=== PATIENT | male | born 1970 | race Asian ===

== ENCOUNTER → 2017-07-04 08:20 | Outpatient (CLI) | payer BC, SELFPAY ==
[2017-07-04 11:00] LABS: ALB/GLOB Ratio 1.1 RATIO (0.9-2.4); AST(SGOT) 23 U/L (15-37); Alanine Aminotransfer ALT/SGPT 35 U/L (16-61); Alkaline Phosphatase 107 U/L (45-117); Anion Gap 6 (5-15); BUN 11 mg/dL (7-18); BUN/Creat Ratio 10.1 RATIO (10-20); Calcium,Total 8.4 mg/dL (8.5-10.1); Chloride 106 mmol/L (98-107); Creatinine, Serum 1.09 mg/dL (0.70-1.30); EST Glomerular Filtration Rate 77 mL/min (>60); Est Glom Filt Rate - Afr Amer 93 mL/min (>60); Globulin 3.5 g/dL (2.2-4.2); Glucose 106 mg/dL (74-106); Potassium 4.1 mmol/L (3.5-5.1); Protein, Total 7.5 g/dL (6.4-8.2); Sodium Level 141 mmol/L (136-145)
== END ==
PROVIDERS: Family Provider Family Medicine; PCP Family Medicine; Visit Provider Family Medicine
DX: I10 Essential (primary) hypertension (principal)
CPT/HCPCS: 36415; 80053

== ENCOUNTER → 2017-09-18 14:55 | Outpatient (CLI) | payer BC, SELFPAY ==
[2017-09-21 11:45] LABS: H. PYLORI STOOL AG Positive (Negative)
== END ==
PROVIDERS: Family Medicine; Family Provider Family Medicine; PCP Family Medicine; Visit Provider Family Medicine
DX: R10.9 Unspecified abdominal pain (principal)

== ENCOUNTER → 2017-11-21 11:48 | Outpatient (CLI) | payer BC, SELFPAY ==
--- NOTE | 2017-11-21 11:51 | RAD_ITS ---
STUDY: X-RAY - RIGHT ANKLE REASON FOR EXAM: Male, 47 years old. injury by the heel while hiking a week ago TECHNIQUE: 3 view(s) of the ankle. COMPARISON: None. FINDINGS: Normal visualized distal tibia and fibula. Normal medial and lateral malleoli. Normal tibiotalar articulation and ankle mortise. Plantar calcaneus spur and posterior calcaneus spur are noted. The visualized subtalar, talonavicular, calcaneocuboid and tarsal articulations are normal. There is soft tissue swelling at the lateral aspect of the ankle suggesting edema. There is a dystrophic calcification in the lower part of the Achilles tendon. RAD/Ankle min 3 Views IMPRESSION: There is soft tissue swelling at the lateral aspect of the ankle suggesting edema. There is a dystrophic calcification in the lower part of the Achilles tendon. Electronically Signed: Jose Ramon Dorsey MD at 14:11 EDT Tel , Service support ,
== END ==
PROVIDERS: Family Provider Family Medicine; PCP Family Medicine; Visit Provider Family Medicine
DX: S99.911A Unspecified injury of right ankle, initial encounter (principal); X58.XXXA Exposure to other specified factors, initial encounter; Y93.9 Activity, unspecified; Y92.9 Unspecified place or not applicable; Y99.9 Unspecified external cause status
CPT/HCPCS: 73610

== ENCOUNTER → 2017-12-07 07:04 | Outpatient (CLI) | payer BC, SELFPAY ==
--- NOTE | 2017-12-07 07:16 | MRI_ITS ---
STUDY: MRI RIGHT ANKLE WITHOUT CONTRAST REASON FOR EXAM: Male, 47 years old. Achilles tendon tear. TECHNIQUE: Standardized fat and water weighted pulse sequences were obtained in all 3 orthogonal planes. # of Images: [id number] COMPARISON: X-ray November 21, 2017. FINDINGS: Normal subcutis adipose space. Normal posterior tibialis tendon. Normal flexor digitorum longus tendon. Normal flexor hallucis longus tendon. Normal peroneus longus and brevis tendons. Normal tibialis anterior tendon. Normal extensor hallucis longus tendon. Normal extensor digitorum longus tendons. There is tendinosis with thickening of the Achilles tendon. There is high grade tear of the distal Achilles tendon and teno-osseous insertion, series 10 image 01/10 and 02/09. There is avulsed fragment of enthesophyte of the posterior calcaneus, series 9 image 12/10 . There is retrocalcaneal bursitis. Normal plantar fascia. Normal plantar calcaneal tubercles. Normal intrinsic muscles of the rearfoot. Normal distal tibiofibular syndesmotic ligamentous complex. Normal lateral ligamentous complex. Normal subtalar ligaments and sinus tarsi. Normal deltoid ligamentous complexes. Normal plantar calcaneonavicular (spring) ligament. Normal tibiotalar articulation. Normal talar dome. Normal subtalar articulations. Normal talonavicular articulation. Normal calcaneocuboid articulation. Normal navicular-cuneiform articulations. MRI/Lower Ext Joint Only (Routine) IMPRESSION: Tendinosis with high-grade distal Achilles tendon tear and avulsed fragment from an enthesophyte at the posterior calcaneus. Electronically Signed: Francisco Duffy MD at 12:20 EDT , Service support ,
== END ==
PROVIDERS: Family Provider Family Medicine; PCP Family Medicine; Referring Provider Podiatrist; Visit Provider Podiatrist
DX: S86.011A Strain of right Achilles tendon, initial encounter (principal); X58.XXXA Exposure to other specified factors, initial encounter; Y93.9 Activity, unspecified; Y92.9 Unspecified place or not applicable; Y99.9 Unspecified external cause status
CPT/HCPCS: 73721

== ENCOUNTER → 2018-01-07 08:35 | Outpatient (CLI) | payer BC, SELFPAY ==
[2018-01-07 10:54] LABS: ALB/GLOB Ratio 1.2 RATIO (0.9-2.4); AST(SGOT) 17 U/L (15-37); Alanine Aminotransfer ALT/SGPT 29 U/L (16-61); Alkaline Phosphatase 128 U/L (45-117); Anion Gap 8 (5-15); BUN 13 mg/dL (7-18); BUN/Creat Ratio 12.1 RATIO (10-20); Calcium,Total 8.2 mg/dL (8.5-10.1); Chloride 108 mmol/L (98-107); Cholesterol 175 mg/dL (200); Creatinine, Serum 1.07 mg/dL (0.70-1.30); EST Glomerular Filtration Rate 78 mL/min (>60); Est Glom Filt Rate - Afr Amer 95 mL/min (>60); Globulin 3.2 g/dL (2.2-4.2); Glucose 117 mg/dL (74-106); High Density Lipoprotein 32 mg/dL; Potassium 4.1 mmol/L (3.5-5.1); Protein, Total 7.2 g/dL (6.4-8.2); Sodium Level 143 mmol/L (136-145); Triglycerides 157 mg/dL; Very Low Density Lipoprotein 31 mg/dL (5-40)
== END ==
PROVIDERS: Family Provider Family Medicine; PCP Family Medicine; Visit Provider Family Medicine
DX: I10 Essential (primary) hypertension (principal)
CPT/HCPCS: 36415; 80053; 80061

== ENCOUNTER 2018-02-01 14:30 | Outpatient (RCR) | payer BC, SELFPAY ==
--- NOTE | 2018-01-18 08:45 | HP.PTEVAL ---
Patient's Visit Information KENNEDY KUNZ is a 47 year old M referred to Physical Therapy by Cornell Carroll with a diagnosis of R achilles tendon tear.. Date of Evaluation: 01/18/18 Physical Therapist: Kamari Toribio DPT, [place] - Visit Plan Frequency: 2-3x /Week Duration: 4-6 Weeks Plan: Educated on activitiy modfiication to tolerance and gait. 2-3x/week for 2-4 to start for. 1. rollout gastroc soleus. Strech gastroc soleus, strengthen gastroc soleus proprioception R ankle, gait training to hiking and progress HEP. ice as needed. - Subjective Findings: Tore achilles tendon backpacking end of 11/15/17 stepping over a root wearing heavy back pack. No previous problems. Doctor sent to foot doctor who did MRI adn tore partially achilles in two places. was in a boot for 6 weeks. F/U last week and got rid of boot last week and sent for PT. Soreness is present with vigorous walking or on a hill posteriorly laterallya t ankle. Putting force through it can make it feel tight. Painfree at rest. Sleep is good. No other treatment other than boot. No current exercises for it. 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 Basic ADLs. Hobbies include backpacking and wants to get back to that. Hiking and has to be careful. Slower than normal and limps. Uncomfortable to step down steps. - Pain R achilles. Pain Intensity (Out of 10): 0 Pain Intensity Range: 0, 2 - Objective B achilles tight to 0 DF, soleus tighter to -2 R and -1 L. No tenderness to [alpatiopn today. SLS R 4 sec adn L 20 sec. Walks I but avoids pushoff with R, weakness with toe walking on R.Steps are reciprocal and I but ecc lowering R with descension is poor. Transfers I. Other ankle aROM WFL. Strength ankle 3+ R gastroc soleus, 4+ other R ankle, 4+ knee B. 5/5 L ankle. - Goals Goal 1:: Full AROM with 4 degrees DF R ankle and 4+/5 strength PF Goal Time Frame: 4-6 Weeks Goal 2:: Walk without deficitis and steps descending normal Goal Time Frame: 4-6 Weeks Goal 3:: Pt feel 90% back to normal and Be I in appropriate HEP. Goal Time Frame: 4-6 Weeks - Rehabilitation Potential Physical Therapy Diagnosis: R achilles tendon tear. Rehabilitation Potential: Fair - Anticipated Interventions Patient/Client Instruction: Educate patient on: Condition, Plan of Care For the Purpose of:: To increase ROM, To improve muscle performance and motor function, To improve performance and independence with ADL's, To improve gait and locomotor functions Therapeutic Exercise to Include: Strength training, Flexibilty training, Gait and locomotor training, Passive ROM, Active ROM For the Purpose of:: To decrease pain, To increase ROM, To improve muscle performance and motor function Manual Therapy Techniques to Include: Soft tissue mobilization For the Purpose of:: To increase ROM Cryotherapy (ice pack, ice massage): Yes For the Purpose of:: To decrease pain Thank you for the opportunity to evaluate your patient. For Medicare and Medicare HMO plans, please review the plan of care and approve it. It will need to be FAXED BACK to us at [phone] for Medicare purposes. For Medicare only, by signing this I certify the plan of care. Please let me know if there are questions or concerns regarding this plan of care. Physician Signature: Date:
--- NOTE | 2018-02-01 15:20 | HP.PTDCSUM ---
HP - PT D/C Summary It has been my pleasure to treat KENNEDY KUNZ under orders from Cornell Carroll, for the diagnosis of R achilles tendon tear. for a total of 6 visit(s). Discharge Date: 02/01/18 Please see the following information for a summary of their discharge status. - Subjective Subjective: Good. Better each day. Not painful. 2/10 with walking alot. Comfortable at rest. Tolerating exercises well. Walked half mile last weekend without difficulty but could not backpack due to snow. Doing stretches at home and strength. Best doctor on 02/13 or after. - Pain R achilles. Pain Intensity (Out of 10): 2 - Overall Improvement % Improvement: 85 - Objective Objective/Function: 5 degrees AROM knee bent and 4 knee straight DF R. 5/5 strength PF, slight weaknesss noted ecc lowering R descending steps but otherwise pretty normal gait and steps. - Goals Goal 1:: Full AROM with 4 degrees DF R ankle and 4+/5 strength PF Goal Progress: Goal Met Goal 2:: Walk without deficitis and steps descending normal Goal Progress: Progressing Goal 3:: Pt feel 90% back to normal and Be I in appropriate HEP. Goal Progress: Progressing - Plan Plan: D/C Pt wants to continue via HEP rather than continued PT. - D/C Information Discharge Comments: Doing well, slightly weak but improving and will continue to work on it at home. Call doctor if concerns. If there are questions or concerns regarding this patient's physical therapy, please feel free to call me at [phone]. Thank you for the referral of this patient. Sincerely, Kamari Toribio, DPT, OCS, CSCS
--- OUTSIDE RECORDS SUMMARY | 2018-03-15 01:32 | XMS RPT_ITS ---
:1970 Author Organization OHIP Support Name Relationship Address Phone [employer] Unavailable [address] + [address] [place] [address] ANTONY KUNZ Unavailable [address] + [place] [address] [employer] Unavailable [address] + [address] [place] [address] ANTONY KUNZ Unavailable [address] + [place] [address] [employer] Unavailable [address] + [address] [place] [phone] ZE, CHI Unavailable [address] + [place] [address] [employer] Unavailable [address] + [address] [place] [phone] ZE CHI Unavailable [address] + [place] [address] [employer] Unavailable [address] + [address] [place] [phone] ZE, CHI Unavailable [address] + [place] [address] [employer] Unavailable [address] + [address] [place] [address] ZE [facility]I Unavailable [address] + [place] [address] Care Team Providers Name Role Phone Frankie Cope Attending Unavailable Frankie Cope Primary Care Unavailable Frankie Cope Attending Unavailable Frankie Cope Primary Care Unavailable Frankie Cope Attending Unavailable Frankie Cope Primary Care Unavailable Cornell Carroll Attending Unavailable Cornell Carroll Referring Unavailable Cope, Frankie Primary Care Unavailable Cope, Frankie Attending Unavailable Cope, Frankie Primary Care Unavailable Jessing, Cornell Attending Unavailable Jessing, Cornell Referring Unavailable Cope, Frankie Primary Care Unavailable PROBLEMS PROBLEMS DATE TYPE CONDITION / CODE ATTENDING STATUS SOURCE 01/07/2018 Unknown I10 - Essential Frankie Cope Active Jeanne (primary) Community hypertension / Hospital I10(ICD-10) Repository 11/21/2017 Unknown S99.919A - Frankie Cope Active Jeanne Unspecified injury Community of unspecified Hospital ankle, initial Repository encounter / S99.919A(ICD-10) PROCEDURES PROCEDURES No Procedure Records FoundRESULTS RESULTS PT D/C SUMMARY (1) Observed: 02/04/2018 Status: F Source: [place] 6:45 AM [facility] REPOSITORY [facility] [address] [place] [address] Fax REHABILITATION SERVICES DISCHARGE SUMMARY MR#: [id number] Acct: [id number] Name: KENNEDY KUNZ Rep #: [id number] : 1970 47 From: Kamari Toribio DPT, OCS, CSCS Referring Dr.: Cornell Carroll DPM Status: REG RCR Insurance: [employer]M SELF PAY INSURANCE HP - PT D/C Summary It has been my pleasure to treat KENNEDY KUNZ under orders from Cornell Carroll, for the diagnosis of R achilles tendon tear. for a total of 6 visit(s). Discharge Date: 02/01/18 Please see the following information for a summary of their discharge status. - Subjective Subjective: Good. Better each day. Not painful. 03/31 with walking alot. Comfortable at rest. Tolerating exercises well. Walked half mile last weekend without difficulty but could not backpack due to snow. Doing stretches at home and strength. Best doctor on 02/13 or after. - Pain R achilles. Pain Intensity (Out of 10): 2 - Overall Improvement % Improvement: 85 - Objective Objective/Function: 5 degrees AROM knee bent and 4 knee straight DF R. 5/5 strength PF, slight weaknesss noted ecc lowering R descending steps but otherwise pretty normal gait and steps. - Goals Goal 1:: Full AROM with 4 degrees DF R ankle and 4+/5 strength PF Goal Progress: Goal Met Goal 2:: Walk without deficitis and steps descending normal Goal Progress: Progressing Goal 3:: Pt feel 90% back to normal and Be I in appropriate HEP. Goal Progress: Progressing - Plan Plan: D/C Pt wants to continue via HEP rather than continued PT. - D/C Information Discharge Comments: Doing well, slightly weak but improving and will continue to work on it at home. Call doctor if concerns. If there are questions or concerns regarding this patient's physical therapy, please feel free to call me at [phone]. Thank you for the referral of this patient. Sincerely, Kamari Toribio DPT, FRED, CSCS <Electronically signed by FRED Ramirez DPT, CSCS> 02/04/18 0645 CC: Cornell Carroll DPM; Frankie Cope MD EBG Signed INITAL EVALUATION (1) Observed: 01/21/2018 Status: F Source: [place] - PT 6:49 AM [facility] REPOSITORY [facility] [address] [place], [place] [address] Fax REHABILITATION SERVICES INITIAL EVALUATION MR#: [id number] Acct: [id number] Name: KENNEDY KUNZ Rep #: [id number] : 1970 47 From: Kamari Toribio DPT, FRED, CSCS Referring Dr.: Cornell Carroll DPM Status: REG RCR Insurance: ANTH SELF PAY INSURANCE Patient's Visit Information KENNEDY KUNZ is a 47 year old M referred to Physical Therapy by Cornell Carroll with a diagnosis of R achilles tendon tear.. Date of Evaluation: 01/18/18 Physical Therapist: Kamari Toribio DPT, OC - Visit Plan Frequency: 2-3x /Week Duration: 4-6 Weeks Plan: Educated on activitiy modfiication to tolerance and gait. 2-3x/week for 2-4 to start for. 1. rollout gastroc soleus. Strech gastroc soleus, strengthen gastroc soleus proprioception R ankle, gait training to hiking and progress HEP. ice as needed. - Subjective Findings: Tore achilles tendon backpacking end of 11/15/17 stepping over a root wearing heavy back pack. No previous problems. Doctor sent to foot doctor who did MRI adn tore partially achilles in two places. was in a boot for 6 weeks. F/U last week and got rid of boot last week and sent for PT. Soreness is present with vigorous walking or on a hill posteriorly laterallya t ankle. Putting force through it can make it feel tight. Painfree at rest. Sleep is good. No other treatment other than boot. No current exercises for it. 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 Basic ADLs. Hobbies include backpacking and wants to get back to that. Hiking and has to be careful. Slower than normal and limps. Uncomfortable to step down steps. - Pain R achilles. Pain Intensity (Out of 10): 0 Pain Intensity Range: 0, 2 - Objective B achilles tight to 0 DF, soleus tighter to -2 R and -1 L. No tenderness to [alpatiopn today. SLS R 4 sec adn L 20 sec. Walks I but avoids pushoff with R, weakness with toe walking on R.Steps are reciprocal and I but ecc lowering R with descension is poor. Transfers I. Other ankle aROM WFL. Strength ankle 3+ R gastroc soleus, 4+ other R ankle, 4+ knee B. 5/5 L ankle. - Goals Goal 1:: Full AROM with 4 degrees DF R ankle and 4+/5 strength PF Goal Time Frame: 4-6 Weeks Goal 2:: Walk without deficitis and steps descending normal Goal Time Frame: 4-6 Weeks Goal 3:: Pt feel 90% back to normal and Be I in appropriate HEP. Goal Time Frame: 4-6 Weeks - Rehabilitation Potential Physical Therapy Diagnosis: R achilles tendon tear. Rehabilitation Potential: Fair - Anticipated Interventions Patient/Client Instruction: Educate patient on: Condition, Plan of Care For the Purpose of:: To increase ROM, To improve muscle performance and motor function, To improve performance and independence with ADL's, To improve gait and locomotor functions Therapeutic Exercise to Include: Strength training, Flexibilty training, Gait and locomotor training, Passive ROM, Active ROM For the Purpose of:: To decrease pain, To increase ROM, To improve muscle performance and motor function Manual Therapy Techniques to Include: Soft tissue mobilization For the Purpose of:: To increase ROM Cryotherapy (ice pack, ice massage): Yes For the Purpose of:: To decrease pain Thank you for the opportunity to evaluate your patient. For Medicare and Medicare HMO plans, please review the plan of care and approve it. It will need to be FAXED BACK to us at [phone] for Medicare purposes. For Medicare only, by signing this I certify the plan of care. Please let me know if there are questions or concerns regarding this plan of care. Physician Signature: Date: <Electronically signed by Kamari Toribio DPT, OCS, CSCS> 01/21/18 0649 CC: Cornell Carroll DPM; Frankie Cope MD EBG Signed COMPREHENSIVE METABOLIC Collected: 01/07/2018 Status: F Source: [place] [facility] 8:35 AM [facility] REPOSITORY TYPE CODE TESTS RESULT OUT OF RANGE REFERENCE UNITS LAB L501.0100 74-106 mg/dL High GLU 117 Result Comment: Fasting Glucose result from 100 to 125 mg/dL suggests IMPAIRED HOMEOSTASIS per A.D.A. criteria. Please note revised GLUCOSE reference range effective 2017. LAB L501.1000 7-18 mg/dL Normal BUN 13 LAB L501.1100 0.70-1.30 mg/dL Normal CREAT,SERUM 1.07 Result Comment: The validity of the calculated GFR AND GFRAA in patients over 70 years has not been determined. Clinical correlation is essential. LAB L501.1110 >60 mL/min Normal EST GFR 78 Result Comment: Non- GFR Calc LAB L501.1115 >60 mL/min Normal EST GFR - AA 95 Result Comment: GFR Calc LAB L501.1300 10-20 RATIO Normal BUN/CRE 12.1 LAB L501.1500 6.4-8.2 g/dL T Normal PROT 7.2 LAB L501.1800 3.2-5.0 g/dL Normal ALB 4.0 LAB L501.1950 2.2-4.2 g/dL Normal GLOB 3.2 LAB L501.2000 0.9-2.4 RATIO Normal A/G 1.2 LAB L501.2200 8.5-10.1 mg/dL Low CA 8.2 LAB L501.4100 15-37 U/L Normal AST 17 LAB L501.4305 45-117 U/L High ALK P 128 LAB L501.4405 16-61 U/L Normal ALT 29 LAB L501.4600 0.20-1.00 mg/dL T Normal BILI 0.90 LAB L501.5300 136-145 mmol/L NA Normal 143 LAB L501.5600 3.5-5.1 mmol/L K Normal 4.1 LAB L501.5900 98-107 mmol/L High CL 108 LAB L501.6100 21.0-32.0 mmol/L Normal CO2 27.0 LAB L501.6200 5-15 Normal GAP 8 Performed By: #### L500.4050, L500.4100 #### [facility] [address] [place], [address] LIPID PROFILE Collected: 01/07/2018 Status: F Source: [place] 8:35 AM [facility] REPOSITORY TYPE CODE TESTS RESULT OUT OF RANGE REFERENCE UNITS LAB L501.4900 200 mg/dL Normal CHOL 175 Result Comment: <200 mg/dL Desirable 200-240 mg/dL Borderline >240 mg/dL High Risk LAB L501.5000 mg/dL Normal TRIG 157 Result Comment: The drugs N-Acetylcysteine and Metamizole may falsely depress this assay. Serum Triglycerides Reference Interval Normal <150 mg/dL Borderline high 150 - 199 mg/dL High 200 - 499 mg/dL Very High > or = 500 mg/dL LAB L501.6400 mg/dL Low HDL 32 Result Comment: The drugs N-Acetylcysteine and Metamizole may falsely depress this assay. Reference Range HDL <40 mg/dL Low HDL Cholesterol HDL >or= 60 mg/dL High HDL Cholesterol LAB L501.6500 0-130 mg/dL Normal LDL 112 LAB L501.6600 5-40 mg/dL Normal VLDL 31 Performed By: #### L500.4050, L500.4100 #### [facility] [address] [place], [address] LOWER EXT JOINT ONLY Observed: 12/07/2017 Status: F Source: [place] (ROUTINE) 7:16 AM [facility] REPOSITORY [facility] Imaging Services [address] [place] [address] Lower Ext Joint Only (Routine) MR#: [id number] Acct: [id number] Name: KENNEDY KUNZ Rep #: [id number] : 1970 M 47 From: Francisco Duffy MD PCP: Frankie Cope MD Status: REG CLI Study: Lower Ext Joint Only (Routine) Date of Exam: 12/07/17 Exam# [id number] Ordering Dr: Cornell Carroll DPM ADDENDUM by Francisco Duffy MD on 12/10/17 at 1424 ADDENDUM IMPRESSION: Tendinosis with high-grade distal Achilles tendon tear and avulsed fragment from an enthesophyte at the posterior calcaneus. There are residual intact inserting fibers at the anterior aspect of the Achilles tendon. Results discussed with Dr. Carroll Electronically Signed: Francisco Duffy MD at 14:24 EDT , Service support , 12/10/17 1424 Date cc: Cornell Carroll DPM; Frankie Cope MD * Signed ADDENDUM by Francisco Duffy MD on 12/10/17 at 1424 MRI/Lower Ext Joint Only (Routine) 12/10/17 1431 Date cc: Cornell Carroll DPM; Frankie Cope MD * Signed STUDY: MRI RIGHT ANKLE WITHOUT CONTRAST REASON FOR EXAM: Male, 47 years old. Achilles tendon tear. TECHNIQUE: Standardized fat and water weighted pulse sequences were obtained in all 3 orthogonal planes. # of Images: [id number] COMPARISON: X-ray November 21, 2017. FINDINGS: Normal subcutis adipose space. Normal posterior tibialis tendon. Normal flexor digitorum longus tendon. Normal flexor hallucis longus tendon. Normal peroneus longus and brevis tendons. Normal tibialis anterior tendon. Normal extensor hallucis longus tendon. Normal extensor digitorum longus tendons. There is tendinosis with thickening of the Achilles tendon. There is high grade tear of the distal Achilles tendon and teno-osseous insertion, series 10 image 01/10 and 02/09. There is avulsed fragment of enthesophyte of the posterior calcaneus, series 9 image 12/10 . There is retrocalcaneal bursitis. Normal plantar fascia. Normal plantar calcaneal tubercles. Normal intrinsic muscles of the rearfoot. Normal distal tibiofibular syndesmotic ligamentous complex. Normal lateral ligamentous complex. Normal subtalar ligaments and sinus tarsi. Normal deltoid ligamentous complexes. Normal plantar calcaneonavicular (spring) ligament. Normal tibiotalar articulation. Normal talar dome. Normal subtalar articulations. Normal talonavicular articulation. Normal calcaneocuboid articulation. Normal navicular-cuneiform articulations. MRI/Lower Ext Joint Only (Routine) IMPRESSION: Tendinosis with high-grade distal Achilles tendon tear and avulsed fragment from an enthesophyte at the posterior calcaneus. Electronically Signed: Francisco Duffy MD at 12:20 EDT , Service support , CC: Cornell Carroll DPM; Frankie Cope MD Facilities Manager: Signed ANKLE MIN 3 VIEWS Observed: 11/21/2017 Status: F Source: [place] 11:52 AM [facility] REPOSITORY [facility] Imaging Services [address] [place] [address] Ankle min 3 Views MR#: [id number] Acct: [id number] Name: KENNEDY KUNZ Rep #: [id number] : 1970 M 47 From: Jose Ramon Dorsey MD PCP: Frankie Cope MD Status: REG CLI Study: Ankle min 3 Views Date of Exam: 11/21/17 Exam# [id number] Ordering Dr: Frankie Cope MD STUDY: X-RAY - RIGHT ANKLE REASON FOR EXAM: Male, 47 years old. injury by the heel while hiking a week ago TECHNIQUE: 3 view(s) of the ankle. COMPARISON: None. FINDINGS: Normal visualized distal tibia and fibula. Normal medial and lateral malleoli. Normal tibiotalar articulation and ankle mortise. Plantar calcaneus spur and posterior calcaneus spur are noted. The visualized subtalar, talonavicular, calcaneocuboid and tarsal articulations are normal. There is soft tissue swelling at the lateral aspect of the ankle suggesting edema. There is a dystrophic calcification in the lower part of the Achilles tendon. RAD/Ankle min 3 Views IMPRESSION: There is soft tissue swelling at the lateral aspect of the ankle suggesting edema. There is a dystrophic calcification in the lower part of the Achilles tendon. Electronically Signed: Jose Ramon Dorsey MD at 14:11 EDT Tel , Service support , CC: Frankie Cope MD Facilities Manager: Signed H. PYLORI STOOL AG Collected: 09/18/2017 Status: F Source: [place] 2:57 PM [facility] REPOSITORY TYPE CODE TESTS RESULT OUT OF REFERENCE UNITS RANGE LAB L3100.1950 Negative High H PYLORI Positive STL AG Result Comment: Performed at: - [facility] [address] [id number] [address] Worker: Raúl Arce MD, Phone: [phone] Performed By: #### L3100.1950 #### [facility] (refer to report for specific site) refer to report for address and phone number COMPREHENSIVE METABOLIC Collected: 07/04/2017 Status: F Source: [place] 8:25 AM [facility] REPOSITORY TYPE CODE TESTS RESULT OUT OF RANGE REFERENCE UNITS LAB L501.0100 74-106 mg/dL Normal GLU 106 Result Comment: Fasting Glucose result from 100 to 125 mg/dL suggests IMPAIRED HOMEOSTASIS per A.D.A. criteria. Please note revised GLUCOSE reference range effective 2017. LAB L501.1000 7-18 mg/dL Normal BUN 11 LAB L501.1100 0.70-1.30 mg/dL Normal CREAT,SERUM 1.09 Result Comment: The validity of the calculated GFR AND GFRAA in patients over 70 years has not been determined. Clinical correlation is essential. LAB L501.1110 >60 mL/min Normal EST GFR 77 Result Comment: Non- GFR Calc LAB L501.1115 >60 mL/min Normal EST GFR - AA 93 Result Comment: GFR Calc LAB L501.1300 10-20 RATIO Normal BUN/CRE 10.1 LAB L501.1500 6.4-8.2 g/dL T Normal PROT 7.5 LAB L501.1800 3.2-5.0 g/dL Normal ALB 4.0 LAB L501.1950 2.2-4.2 g/dL Normal GLOB 3.5 LAB L501.2000 0.9-2.4 RATIO Normal A/G 1.1 LAB L501.2200 8.5-10.1 mg/dL Low CA 8.4 LAB L501.4100 15-37 U/L Normal AST 23 Result Comment: Slight Hemolysis, Result may be falsely increased. LAB L501.4305 45-117 U/L Normal ALK P 107 LAB L501.4405 16-61 U/L Normal ALT 35 LAB L501.4600 0.20-1.00 mg/dL Normal T BILI 0.70 LAB L501.5300 136-145 mmol/L Normal NA 141 LAB L501.5600 3.5-5.1 mmol/L Normal K 4.1 Result Comment: Slight Hemolysis, Result may be falsely increased. LAB L501.5900 98-107 mmol/L Normal CL 106 LAB L501.6100 21.0-32.0 mmol/L Normal CO2 29.0 LAB L501.6200 5-15 Normal 6 GAP Performed By: #### L500.4050 #### [facility] [address] [place], [address] ALLERGIES ALLERGIES No Allergies Records FoundENCOUNTERS ENCOUNTERS ADMIT/DISCHARGE ACCOUNT ADMITTING ENCOUNTER LOCATION SOURCE NUMBER CLASS 02/01/2018 [id number] [facility] [address] ing:PT Repository 01/07/[id number] ing:MFPLAB Repository 12/07/2017 [id number] [facility] [place] 0 [facility] ing:MRI Repository 11/21/2017 [id number] [facility] ing:MTRAD Repository 09/18/2017 [id number] [facility] Jeanne[address] ing:MFPLAB Repository 07/04/[id number] ing:MFPLAB Repository PAYERS PAYERS ENCOUNTER GUARANTOR PAYER SUBSCRIBER SOURCE 02/01/2018 KENNEDY Alcazar Primary KENNEDY Alcazar Jean[place] [id number] Insurance:ANTHEMPolic NGUYENDOB: [facility] y [place]: [id number] [id number] Repository [address]Gka: [phone]) Date:0537-40-36[phone] ([facility] [address], [place] [address]QF: 02/01/2018 Secondary NOT GIVENUNK [place] Insurance:SELF PAY [facility] Number: Effective Repository Date:2018-01-17 01/07/2018 KENNEDY Alcazar Primary KENNEDY M [place] [id number] Insurance:ANTHEMPolic NGUYENDOB: [facility] y Number: [id number] [place] [id number] Repository [address]Wmz: ([phone]) Date:3993-16-20[phone] () [address], [place] [address]DB: 01/07/2018 Secondary NOT GIVENUNK [place] Insurance:SELF PAY [facility] Number: Effective Repository Date:2018-01-07 12/07/2017 BLANCHARD M Primary BLANCHARD M [place] [id number] Insurance:ANTHEMPolic NGUYENDOB: [facility] y Number: [id number] [place], [place] [id number] Repository [address]Mtk: ([phone]) Date:6327-78-65IF [phone] () [address], [place] [address]KU: 12/07/2017 Secondary NOT GIVENUNK [place] Insurance:SELF PAY [facility] Number: Effective Repository Date:2017-12-05 11/21/2017 BLANCHARD M Primary BLANCHARD M Jeanne [id number] Insurance:ANTHEMPolic NGUYENDOB: [facility] y Number: [id number] [place] [id number] Repository [address]Lmt: (419) Date:4819-19-81GH [phone] () 167[address]WTV[place], [place] [address]UG: 11/21/2017 Secondary NOT GIVENUNK [place] Insurance:SELF PAY [facility] Number: Effective Repository Date:2017-11-21 09/18/2017 [place] Primary [place] Jean[place] [id number] Insurance:ANTHEMPolic NguyenDOB: [facility] y Number: [id number] [place], [place] [id number] Repository [address]Kit: (419) Date:0048-18-27OJ [phone] () [id number], [place] [address]CL: 09/18/2017 Secondary NOT GIVENUNK [place] Insurance:SELF PAY [facility] Number: Effective Repository Date:2017-09-18 07/04/2017 [place] Primary [place] Jeanne [id number] Insurance:ANTHEMPolic NguyenDOB: [facility] Number: [id number] [place] [id number] Repository [address]Iop: [phone]) Date:7075-86-54YW [phone] () 0717[address]CMDULVT, [place] [address]RL: 07/04/2017 Secondary NOT GIVENUNK [place] Insurance:SELF PAY [facility] Number: Effective Repository Date:2017-07-04
== END 2018-02-01 19:00 | disposition home or self-care (01) ==
LOC: PT 14:30
PROVIDERS: Family Provider Family Medicine; PCP Family Medicine; Referring Provider Podiatrist; Visit Provider Podiatrist
DX: S86.011D Strain of right Achilles tendon, subsequent encounter (principal)
CPT/HCPCS: 97110; 97140; 97161; 97530

== ENCOUNTER → 2018-07-12 08:08 | Outpatient (CLI) | payer BC, SELFPAY ==
[2018-07-12 10:40] LABS: ALB/GLOB Ratio 1.3 RATIO (0.9-2.4); AST(SGOT) 12 U/L (15-37); Alanine Aminotransfer ALT/SGPT 25 U/L (16-61); Albumin, Serum 3.9 g/dL (3.2-5.0); Alkaline Phosphatase 123 U/L (45-117); Anion Gap 7 (5-15); BUN 13 mg/dL (7-18); BUN/Creat Ratio 13.4 RATIO (10-20); Calcium,Total 8.3 mg/dL (8.5-10.1); Chloride 108 mmol/L (98-107); Cholesterol 153 mg/dL (200); Creatinine, Serum 0.97 mg/dL (0.70-1.30); EST Glomerular Filtration Rate 88 mL/min (>60); Est Glom Filt Rate - Afr Amer 106 mL/min (>60); Glucose 103 mg/dL (74-106); High Density Lipoprotein 33 mg/dL; Potassium 4.2 mmol/L (3.5-5.1); Protein, Total 6.9 g/dL (6.4-8.2); Sodium Level 141 mmol/L (136-145); Triglycerides 128 mg/dL; Very Low Density Lipoprotein 26 mg/dL (5-40)
== END ==
PROVIDERS: Family Provider Family Medicine; PCP Family Medicine; Referring Provider Family Medicine; Visit Provider Family Medicine
DX: I10 Essential (primary) hypertension (principal)
CPT/HCPCS: 36415; 80053; 80061

== ENCOUNTER → 2018-09-08 14:28 | Outpatient (CLI) | payer BC, SELFPAY ==
[2018-09-08 12:10] VITALS: BMI 25.8
== END ==
LOC: LAB 14:29 → LABSPEC 14:31
PROVIDERS: Family Provider Family Medicine; PCP Family Medicine; Referring Provider Family Medicine; Visit Provider Physician Assistant Medical
DX: J02.9 Acute pharyngitis, unspecified (principal)
CPT/HCPCS: 87081

== ENCOUNTER → 2018-12-09 11:49 | Outpatient (CLI) | payer BC, SELFPAY ==
[2018-09-08 12:10] VITALS: BMI 25.8
--- NOTE | 2018-12-09 12:09 | CT_ITS ---
STUDY: CT BRAIN WITHOUT CONTRAST REASON FOR EXAM: Male, 48 years old. Vertigo and nausea RADIATION DOSAGE (If Supplied By Facility): CTDIvol = ( 44.99 ) mGy, DLP = ( 796.11 ) mGycm TECHNIQUE: Transaxial CT imaging of the brain was performed without administration of intravenous contrast material. Individualized dose optimization techniques were used for this CT. COMPARISON: No relevant priors. FINDINGS: Brain parenchyma is without focal lesions, mass effect, acute intracranial hemorrhage, extra parenchymal fluid collections, hydrocephalus or herniation. The skull is intact. CT/Brain/Head without Contrast IMPRESSION: 1. Normal CT brain. Electronically Signed: Cristina Chapa, at 16:22 EDT Tel , Service support ,
== END ==
PROVIDERS: Family Provider Family Medicine; PCP Family Medicine; Referring Provider Family Medicine; Visit Provider Family Medicine
DX: R42 Dizziness and giddiness (principal)
CPT/HCPCS: 70450

== ENCOUNTER → 2019-12-26 07:18 | Outpatient (CLI) | payer BC, SELFPAY ==
[2018-09-08 12:10] VITALS: BMI 25.8
[2019-12-26 10:18] LABS: Anion Gap 6 (5-15); BUN 14 mg/dL (7-18); BUN/Creat Ratio 14.1 RATIO (10-20); Calcium,Total 8.2 mg/dL (8.5-10.1); Chloride 109 mmol/L (98-107); Cholesterol 189 mg/dL (200); EST Glomerular Filtration Rate 84 mL/min (>60); Est Glom Filt Rate - Afr Amer 102 mL/min (>60); Glucose 127 mg/dL (74-106); High Density Lipoprotein 37 mg/dL; Potassium 3.9 mmol/L (3.5-5.1); Sodium Level 141 mmol/L (136-145); Triglycerides 126 mg/dL; Very Low Density Lipoprotein 25 mg/dL (5-40)
== END ==
PROVIDERS: PCP Family Medicine; Referring Provider Family Medicine; Visit Provider Family Medicine
DX: I10 Essential (primary) hypertension (principal)
CPT/HCPCS: 36415; 80048; 80061

== ENCOUNTER 2020-01-23 09:23 | Day surgery (SDC) | payer BC, SELFPAY ==
[2018-09-08 12:10] VITALS: BMI 25.8
--- NOTE | 2020-01-23 | COLBX_PTH ---
PATIENT: KENNEDY KUNZ LOC: EN U#:[id number] AGE/SX: 49/M ROOM: RE01/23/[address]: Dr. Saqib Tanner MD : 1970 BED: DIS: 01/23/2020 SPEC #: [id number] RECD: 01/23/20 14:17 STATUS: MINI REMaryjane #: [id number] ERIKA: 01/23/20 00:[address]: Saqbi Tanner DEPT: SURGICAL PATHOLOGY RECD BY: Dorian Dow ENTERED: 01/26/20 08:40 SP TYPE: COLON BX OTHR DR: Dr. Frankie Cope MD Tissues: A - Cecum, NOS B - Descending colon Procedures: Surgery Specimen Level IV HEADER OPERATION: Colonoscopy - open access (MAC) PRE-OP DIAGNOSIS: Screening colonoscopy TISSUE SUBMITTED: A - Cecum polyp, B - Descending colon polyp MICROSCOPIC DIAGNOSIS A. Cecal polyp, biopsy: Fragments of tubular adenoma. B. Descending colon polyp, biopsy: Fragments of tubular adenoma. AM:kasandra 01/27/20 MICROSCOPIC DESCRIPTION Slides are reviewed. GROSS DESCRIPTION A - Received in fixative is one container labeled with the patient's name and designated cecal polyp. The specimen consists of multiple irregular fragments of light ordoñez soft tissue that in aggregate measure 1.2 x 0.5 x 0.2 cm. The specimen is totally submitted in one cassette. B - Received in fixative is one container labeled with the patient's name and designated descending colon polyp. The specimen consists of multiple irregular fragments of light ordoñez soft tissue that in aggregate measure 1.5 x 0.6 x 0.1 cm. The specimen is totally submitted in one cassette. / AM:kasandra 01/26/20 TC:5 CPT: 73566 x2
[2020-01-23 09:53] VITALS: BP 118/99; PULSE 96; RESP 18; TEMP 36.5; O2SAT 95; BMI 26.4
[2020-01-23] MEDS: Lactated Ringers 1,000 ML 100 ML IV (10:03)
--- NOTE | 2020-01-23 10:34 | HP.PCM_ITS ---
History of Present Illness Date of Admission: 01/23/20 The patient is a 49 year old M here for screening colonoscopy. The patient has never had a colonoscopy in the past. He denies any abdominal pain or blood in his stool. He has no family history of colon cancer. Past Medical/Surgical History - Planned Operation Planned Operative Procedure/s: COLONOSCOPY Date of Operative Procedure: 01/23/20 Permit Signed: Yes S.O.S: No Is This Patient Having a Total Joint: No - Previous Hospitalizations/Surgeries HX Hospitalizations: No HX of Surgeries: NONE Any Problems With Anesthesia: No You/Your Family Experience Fever (Hyperthermia) With Anes: No Cholinesterase deficiency: No - Cardiovascular Hx Chest Pain within Last 2 months: No Hx of Irregular Heartbeat and/or Afib: No Hx Heart Attack: No Hx Congestive Heart Failure: No Hx Rheumatic Fever: No Hx Hypertension: Yes - ON MED, CONTROLLED Hx Internal Defibrillator: No Hx Pacemaker: No Hx Cardiac Catheterization: No Hx Cardiac Surgery/Stents/Etc.: No Hx Stress Test: No HX Edema: No Hx Pain in Legs when Walking/Leg Cramps: No - Respiratory Chronic Cough: No HX of Shortness of Breath: No Hoarseness: No Hx Chronic Obstructive Pulmonary Disease (COPD): No Hx Asthma: No Hx Emphysema: No Hx Sleep Apnea: No Hx Oxygen Use at Home: No Hx Respiratory Tract Infection/Cold (presently): No Do You Snore Loudly (louder than talking or can be heard): No Do You Often Feel Tired/ Fatigued/ Sleepy Dring Daytime?: No Has Anyone Observed You Stop Breathing During Sleep?: No Result (for STOP score): Negative Hx Smoking: Yes Smoking Status: Current every day smoker - Gastrointestinal Hx Gastroesophageal Reflux: No Hx Gastrointestinal Disorders: No Hx Gastrointestinal Bleed: No Hx Ulcer: No Hx Hiatal Hernia: No Difficulty Chewing/Swallowing: No Recent Onset of Swallowing Problems: No Special diet followed at home: No Hx Unplanned Weight Loss of 20#: No HX Unplanned Weight Gain of 20#: No - Neurological Hx Seizures: No HX Syncope/Blackout Spells/Unconsciousness: No Hx CVA/Stroke: No Hx Transient Ischemic Attacks (TIA): No Hx Multiple Sclerosis: No Hx Parkinson's Disease: No Hx Head/Neck Injury: No Hx Headaches: No Hx Back Injury/Pain: No Recent Onset of Speech Difficulty: No Restless Legs: No Does patient have nerve stimulator: No - Blood Disorder Hx Leukemia: No Bleeding Tendencies: No Hx Deep Vein Thrombosis: No Hx High Cholesterol: No Blood Transmitted Disease: No Hx Hepatitis: No Hx Cirrhosis: No Hx Anemia: No Hx Blood Disorders: No - Genitourinary Hx Renal Disease: No - Musculoskeletal Hx Arthritis: No Hx Rheumatoid Arthritis: No Hx Gout: No Recent Onset of an Orthopedic Problem: No - Endocrine Hx Diabetes: No Thyroid Disease: No Hx Steroid Therapy: No - Psycho/Social Hx Substance Use: No Hx Alcohol Use: No Hx Anxiety: No Hx Depression: No Mental Illness: No Hx Dementia: No - Miscellaneous Hx Cancer: No Recent Exposure to Contagious Disease: No Active MRSA: No Hx of C-Diff: No Any Loose Teeth: No Additional information pertinent to anesthesia:: SMOKES 5-6 CIGARETTES PER DAY FOR 30 YRS Allergies No Known Allergies Allergy (Verified 01/20/20 10:40) - Discharge Is Pt Admitted From a Senior Care, or a Halfway: No Who Could Help: After D/C, Where Do you Plan to Go: Return Home - Physical Exam Vitals/I&O's: Vital Signs Temp Pulse Resp BP Pulse Ox 97.7 F L 96 18 118/99 H 95 01/23/20 09:53 01/23/20 09:53 01/23/20 09:53 01/23/20 09:53 01/23/20 09:53 Oxygen Delivery Method Room Air Weight: 169 lb 1.513 oz Body Mass Index (BMI) 26.4 General: Alert, Oriented x3 Lungs: Normal air movement Cardiovascular: Regular rate, Regular Rhythm Abdomen: Soft, Non Tender, Non-Distended Microbiology Past 72 Hours 01/22/20 08:54 Interface Orders SARS-CoV-2 Antigen (Rapid) - Final Current Medications Lactated Ringer's () 1,000 mls @ 100 mls/hr IV .Q10H DEBBIE Last Admin: 01/23/20 10:03 Dose: 100 mls/hr Documented by: Assessment/Plan 49-year-old male for screening colonoscopy I explained endoscopy in detail to the patient. I explained the risks including but not limited to stroke or heart attack with anesthesia, perforation of the GI tract, bleeding, infection. I explained that any of these could necessitate further emergency surgery. The patient understands and all questions were answered sufficiently. The patient wishes to proceed with procedure. Saqib Tanner MD Pager: [facility] [address] [place] [address] [address] [place] [address] Office: Surgery Risks - Colonoscopy Risks Include but are not Limited To: Risks include but are not limited to: Bleeding, perforation requiring further surgery, inability to complete colonoscopy requiring barium enema.
--- NOTE | 2020-01-23 11:02 | OP.CCLET_ITS ---
01/23/2020 Frankie Cope MD [address] [phone] Re : Colonoscopy procedure for Santo Fong Dear Dr. Cope This procedure was performed on Thursday, January 23, 2020. My impressions and recommendations are as follows: Impressions : - Two medium polyps in the descending colon and in the cecum, removed with a hot snare. Resected and retrieved. - The examination was otherwise normal on direct and retroflexion views. Recommendations : - Discharge patient to home. - Resume previous diet. - Continue present medications. - Await pathology results. - Repeat colonoscopy in 5 years for surveillance. My findings are described in the full procedure note, which is enclosed. If I can be of further assistance, please feel free to contact me at Doctor phone number(s): , Work: . Sincerely, Saqib Tanner MD 01/23/2020 11:01:34 AM This report has been signed electronically.
--- NOTE | 2020-01-23 11:02 | OP.COLON_ITS ---
Patient Name: Santo Fong Procedure Date: 01/23/2020 10:38 AM Date of : 1970 Age: 49 Procedure: Colonoscopy Indications: Screening for colorectal malignant neoplasm Providers: Saqib Tanner MD Referring MD: Frankie Cope MD Medicines: Monitored Anesthesia Care Patient Profile: This is a 49 year old male. Refer to note in patient chart for documentation of history and physical. Last Colonoscopy: none. The patient's first colonoscopy is today. Complications: No immediate complications. Procedure: Pre-Anesthesia Assessment: - Prior to the procedure, a History and Physical was performed, and patient medications and allergies were reviewed. The patient's tolerance of previous anesthesia was also reviewed. The risks and benefits of the procedure and the sedation options and risks were discussed with the patient. All questions were answered, and informed consent was obtained. Prior Anticoagulants: The patient has taken no previous anticoagulant or antiplatelet agents. After reviewing the risks and benefits, the patient was deemed in satisfactory condition to undergo the procedure. After I obtained informed consent, the scope was passed under direct vision. Throughout the procedure, the patient's blood pressure, pulse, and oxygen saturations were monitored continuously. The colonoscope was introduced through the anus and advanced to the cecum, identified by appendiceal orifice and ileocecal valve. The colonoscopy was performed without difficulty. The patient tolerated the procedure well. The quality of the bowel preparation was good. Scope In: 10:44:20 AM Scope Withdrawal Time 0 hours 9 minutes 4 seconds Scope Out: 10:58:42 AM Total Procedure Duration Time 0 hours 14 minutes 22 seconds Findings: Two polyps were found in the descending colon and cecum. The polyps were medium in size. These polyps were removed with a hot snare. Resection and retrieval were complete. The exam was otherwise without abnormality on direct and retroflexion views. Impression: - Two medium polyps in the descending colon and in the cecum, removed with a hot snare. Resected and retrieved. - The examination was otherwise normal on direct and retroflexion views. Recommendation: - Discharge patient to home. - Resume previous diet. - Continue present medications. - Await pathology results. - Repeat colonoscopy in 5 years for surveillance. Procedure Code(s): --- Professional --- 08840, Colonoscopy, flexible; with removal of tumor(s), polyp(s), or other lesion(s) by snare technique Diagnosis Code(s): --- Professional --- Z12.11, Encounter for screening for malignant neoplasm of colon D12.4, Benign neoplasm of descending colon D12.0, Benign neoplasm of cecum CPT copyright 2017 [employer]. All rights reserved. The codes documented in this report are preliminary and upon carpenter helper maintenance review may be revised to meet current compliance requirements. Saqib Tanner MD 01/23/2020 11:01:34 AM This report has been signed electronically. Number of Addenda: 0 Note Initiated On: 01/23/2020 10:38 AM
[2020-01-23 11:03] VITALS: BP 118/99; BP 96/84; PULSE 88; RESP 18; TEMP 37; O2SAT 97
[2020-01-23 11:05] VITALS: BP 108/76; BP 118/99; PULSE 77; RESP 16; O2SAT 98
[2020-01-23 11:10] VITALS: BP 118/99; BP 99/78; PULSE 77; RESP 16; O2SAT 97
[2020-01-23 11:15] VITALS: BP 106/85; BP 118/99; PULSE 74; RESP 16; O2SAT 98
[2020-01-23 11:28] VITALS: BP 115/91; BP 118/99; PULSE 76; RESP 16; TEMP 36.2; O2SAT 99
== END 2020-01-23 11:45 | disposition home or self-care (01) ==
LOC: EN 09:30
PROVIDERS: PCP Family Medicine; Referring Provider Family Medicine; Visit Provider Surgery
PROC: 0DJD8ZZ Inspection of Lower Intestinal Tract, Via Natural or Artificial Opening Endoscopic (ICD-10-PCS; CPT 45378; principal; 2020-01-23 10:25)
DX: Z12.11 Encounter for screening for malignant neoplasm of colon (principal); D12.0 Benign neoplasm of cecum; D12.4 Benign neoplasm of descending colon; I10 Essential (primary) hypertension; F17.200 Nicotine dependence, unspecified, uncomplicated; Z20.828 Contact with and (suspected) exposure to other viral communicable diseases
CPT/HCPCS: 45385; 87426; 88305; C9803; J7120; J2405

== ENCOUNTER → 2022-07-24 | Outpatient (CLI) | payer BC, SELFPAY ==
[2022-07-24 11:33] LABS: AST(SGOT) 13 U/L (15-37); Alanine Aminotransfer ALT/SGPT 20 U/L (16-61); Albumin, Serum 3.8 g/dL (3.2-5.0); Alkaline Phosphatase 164 U/L (45-117); Anion Gap 9 (5-15); BUN 17 mg/dL (7-18); BUN/Creat Ratio 16.7 RATIO (10-20); Calcium,Total 9.1 mg/dL (8.5-10.1); Chloride 105 mmol/L (98-107); Cholesterol 213 mg/dL (200); Creatinine, Serum 1.02 mg/dL (0.70-1.30); EST Glomerular Filtration Rate 81 mL/min (>60); Est Glom Filt Rate - Afr Amer 98 mL/min (>60); Globulin 3.9 g/dL (2.2-4.2); Glucose 225 mg/dL (74-106); High Density Lipoprotein 31 mg/dL; Potassium 4.3 mmol/L (3.5-5.1); Protein, Total 7.7 g/dL (6.4-8.2); Sodium Level 136 mmol/L (136-145); Thyroid Stim Hormone (TSH) 1.86 uIU/mL (0.358-3.74); Triglycerides 222 mg/dL; Very Low Density Lipoprotein 44 mg/dL (5-40)
== END | disposition home or self-care (01) ==
LOC: MFPLAB 08:31
PROVIDERS: PCP Family Medicine; Visit Provider Family Medicine
DX: I10 Essential (primary) hypertension (principal); R63.4 Abnormal weight loss
CPT/HCPCS: 36415; 80053; 80061; 84443

== ENCOUNTER → 2023-01-20 | Outpatient (CLI) | payer BC, SELFPAY ==
[2023-01-20 09:52] LABS: ALB/GLOB Ratio 1.2 RATIO (0.9-2.4); AST(SGOT) 9 U/L (15-37); Alanine Aminotransfer ALT/SGPT 17 U/L (16-61); Alkaline Phosphatase 107 U/L (45-117); Anion Gap 6 (5-15); BUN 17 mg/dL (7-18); BUN/Creat Ratio 15.6 RATIO (10-20); Calcium,Total 8.9 mg/dL (8.5-10.1); Chloride 109 mmol/L (98-107); Cholesterol 199 mg/dL (200); Creatinine, Serum 1.09 mg/dL (0.70-1.30); EST Glomerular Filtration Rate 75 mL/min (>60); Est Glom Filt Rate - Afr Amer 91 mL/min (>60); Globulin 3.3 g/dL (2.2-4.2); Glucose 152 mg/dL (74-106); High Density Lipoprotein 39 mg/dL; Protein, Total 7.3 g/dL (6.4-8.2); Sodium Level 139 mmol/L (136-145); Triglycerides 102 mg/dL; Very Low Density Lipoprotein 20 mg/dL (5-40)
[2023-01-20 11:22] LABS: Microalbumin,Random Urine 11.4 mg/L (NO RANGE EST.); Microalbumin:Creatinine Ratio 5.7 mg/g CRE (<30 mg/g CRE)
== END | disposition home or self-care (01) ==
LOC: LABSPEC 08:26
PROVIDERS: PCP Family Medicine; Referring Provider Family Medicine; Visit Provider Family Medicine
DX: E11.9 Type 2 diabetes mellitus without complications (principal)
CPT/HCPCS: 36415; 80053; 80061; 82043; 82570

== ENCOUNTER 2023-09-04 09:18 | Day surgery (SDC) | payer BC, SELFPAY ==
--- NOTE | 2023-08-28 08:04 | EKG12_ITS ---
Test Reason : PREOP Blood Pressure : / mmHG Vent. Rate : 068 BPM Atrial Rate : 068 BPM P-R Int : 124 ms QRS Dur : 070 ms QT Int : 378 ms P-R-T Axes : 103 056 036 degrees QTc Int : 401 ms Normal sinus rhythm Normal ECG Confirmed by Franco Lorenz ([id number]), editor news RADHA AUSTIN ([id number]) on 08/29/2023 9:57:58 AM Referred By: Saqib Tanner Confirmed By:Franco Lorenz
[2023-08-28 09:09] LABS: Hematocrit 45.7 % (40-54); Hemoglobin 15.3 g/dL (13.0-16.5); Mean Corp Hgb Conc 33.5 g/dL (32-36); Mean Corpuscular Hgb 31.2 pg (27.0-32.0); Mean Corpuscular Volume 93.3 fL (80-94); Mean Platelet Vol. 9.5 fl (6.2-12.0); Platelet Count 185 K/mm3 (150-450); RBC Distribution Width CV 11.5 % (11.6-14.6); RBC Distribution Width SD 39.4 fl (35.1-43.9); White Blood Count 6.1 K/mm3 (4.4-11.0)
[2023-08-28 09:45] LABS: AST(SGOT) 14 U/L (15-37); Alanine Aminotransfer ALT/SGPT 20 U/L (16-61); Albumin, Serum 3.8 g/dL (3.2-5.0); Alkaline Phosphatase 124 U/L (45-117); Anion Gap 4 (5-15); BUN 15 mg/dL (7-18); BUN/Creat Ratio 16.2 RATIO (10-20); Bilirubin, Direct 0.22 mg/dL (0.00-0.30); Calcium,Total 8.4 mg/dL (8.5-10.1); Chloride 107 mmol/L (98-107); Creatinine, Serum 0.92 mg/dL (0.70-1.30); EST Glomerular Filtration Rate 91 mL/min (>60); Est Glom Filt Rate - Afr Amer 110 mL/min (>60); Globulin 3.1 g/dL (2.2-4.2); Glucose 146 mg/dL (74-106); Potassium 4.1 mmol/L (3.5-5.1); Protein, Total 6.9 g/dL (6.4-8.2); Sodium Level 138 mmol/L (136-145)
[2023-09-04] VITALS (11 sets, daily range): BP systolic 110–133; BP diastolic 71–93; PULSE 63–82; RESP 16–24; TEMP 36.2–36.4; O2SAT 95–100; BMI 25.2
--- NOTE | 2023-09-04 09:46 | PCM.POST.ANE ---
Anesthesia: Postop Eval I Current Vital Signs Temperature: 98.2 F Pulse Rate: 84 Blood Pressure: 120/66 Respiratory Rate: 20 Pulse Ox: 98 Oxygen Delivery Method: Room Air Assessment Airway patent: Yes Spontaneous unlabored respirations: Yes Mental status: Awake and Calm nausea: No Vomiting: No Anesthesia Complication: No Fluid Hydration Crystalloid volume administer (ml): 1,200 Total IV fluid infused: 1,200 Progress Note Anesthesia document: Postop Eval 1 completed: Yes
[2023-09-04] MEDS: Lactated Ringers 1,000 ML 15 ML IV (10:12)
[2023-09-04 10:39] LABS: Bedside Glucose 124 mg/dL (74-106)
--- NOTE | 2023-09-04 10:40 | PRE.ANES_ITS ---
ASA Classification* ASA Classification ASA Classification: 2 Assessment & Plan Anesthesia* Anesthesia Assessment Anesthesia Assessment: Discussed sedation and/or anesthesia options, risks, benefits, and alternatives with patient/parents/legal guardian/POA. Questions invited. The patient/parents/legal guardian/POA seems to understand and agrees to proceed with anesthesia plan. Reviewed the physical assessment, medical history, allergy history and patient home medications list prior to surgery/procedure/anesthetic and documented any changes. Performed airway and anesthesia risk assessments. Anesthesia Type Anesthesia Type: General History Source History Obtained from:: Patient and Chart Anesthesia Focused Assessment* Temperature: 97.3 F Pulse Rate: 69 Blood Pressure: 133/93 Respiratory Rate: 16 Pulse Ox: 100 Oxygen Delivery Method: Room Air Airway Assessment Mouth opens: 2 cm Mallampati Score: IV Teeth Condition: Missing (Top right molar is missing) Neck Range of motion (ROM): Limited ROM Comment: Somewhat decreased extension. Focused Labs Anesthesia Preop lab: CBC WBC 6.1 K/mm3 (4.4-11.0) 08/28/23 08:31 RBC 4.90 M/mm3 (4.6-6.2) 08/28/23 08:31 Hgb 15.3 g/dL (13.0-16.5) 08/28/23 08:31 Hct 45.7 % (40-54) 08/28/23 08:31 Plt Count 185 K/mm3 (150-450) 08/28/23 08:31 CHEMISTRY Potassium 4.1 mmol/L (3.5-5.1) 08/28/23 08:31 Sodium 138 mmol/L (136-145) 08/28/23 08:31 BUN 15 mg/dL (7-18) 08/28/23 08:31 Creatinine 0.92 mg/dL (0.70-1.30) 08/28/23 08:31 Glucose 146 mg/dL (74-106) H 08/28/23 08:31 POC Glucose 124 mg/dL (74-106) H 09/04/23 10:03 TSH 1.86 uIU/mL (0.358-3.74) 07/24/22 08:31 COAG Pre-Assessment Diagnosis/Proposed Procedure Planned Operative Procedure(s): LAP ROBOTIC RIGHT POSSIBLE BILAT INGUINAL HERNIA REPAIR WITH MESH Anesthesia History Anesthesia History - leak patcher: Anesthesia History - leak patcher Hx Hospitalization No 08/27/23 11:19 Any Problems With Anesthesia No 08/27/23 11:19 Cholinesterase deficiency No 08/27/23 11:19 You/Your Family Experience No 08/27/23 11:19 fever (hyperthermia) with Relationship Recent Exposure to Contagious No 09/04/23 10:07 Disease Does patient have nerve No 08/27/23 11:19 stimulator Patient instructed to have device shut off --Does patient have Pacemaker No 09/04/23 10:07 or ICD? When Was Last Pacemaker Check QUESTION #4 FULL TEXT: You/Your Family Experience fever (hyperthermia) with Anesthesia Last Oral Intake Last Oral intake: Last Oral Intake NPO since 07:30 09/04/23 10:07 Meds taken in AM with sips of No 09/04/23 10:07 water? Meds patient instructed to take am of surgery PONV PONV - leak patcher: PONV - leak patcher Female No 08/27/23 11:19 HX of Motion Sickness Yes 08/27/23 11:19 HX of N/V After Surgery No 08/27/23 11:19 Non-Smoker No 08/27/23 11:19 Duration of Surgery greater Yes 08/27/23 11:19 than 60 minutes Number of Risk Factors 2 08/27/23 11:19 PONV Score Moderate Risk 08/27/23 11:19 Height & Weight Height & Weight: Anesthesia: Height & Weight Height 5 ft 6 in 09/04/23 10:07 Weight: 71 kg 09/04/23 10:07 Body Mass Index (BMI) 25.2 09/04/23 10:07 Respiratory Assessment Respiratory Assessment - leak patcher: Respiratory Tract Infection Hx - leak patcher Hx Respiratory Tract Infection No 08/27/23 11:19 STOP Sleep Apnea STOP Sleep Apnea - leak patcher: STOP Sleep Apnea - leak patcher Hx Hypertension Yes 08/27/23 11:19 Hx Sleep Apnea No 08/27/23 11:19 CPAP BIPAP Do you snore loudly (louder No 08/27/23 11:19 than talking or can be heard Do you often feel tired/ No 08/27/23 11:19 fatigued/ sleepy during daytime? Has anyone observed you stop No 08/27/23 11:19 breathing during sleep? STOP Results Negative 08/27/23 11:19 QUESTION #5 FULL TEXT : Do you snore loudly (louder than talking or can be heard through closed doors)? 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 Specify any problems Hx of Preganancy in last 3 N/A 08/27/23 11:19 Months Nurse Filling Out Transfusion SFRANTZ 08/27/23 11:19 & Questions: Date: 08/27/23 08/27/23 11:19 Time: 11:23 08/27/23 11:19 Patient unable to answer at this time (ie. confused, unrespo /Reproduction History /Reproductive History - leak patcher: /Reproductive Hx- leak patcher Hx Now No 08/27/23 11:19 Gestational Age (in weeks): EDC: Hx Hx Para Hx Section SAB No 08/27/23 11:19 Active Medications Active Medications: Current Medications Generic Name Dose Route Start Last Admin Trade Name Freq PRN Reason Stop Dose Admin Cefazolin Sodium 2 gm/ Sodium 110 mls @ 150 mls/hr 09/04/23 11:00 Chloride IV 09/04/23 11:43 PREOP ONE Lactated Ringer's 1,000 mls @ 15 mls/hr 09/04/23 10:00 09/04/23 10:12 IV 15 mls/hr .Q48H DEBBIE Administration PFSH Medical History No history of colonoscopy Loss of hearing Wears glasses Diabetes Hepatitis High cholesterol Smoker Liver disease Hypertension Home Medications ?Medication ?Instructions ?Recorded ?Last Taken ?Type lisinopril 5 mg tablet 5 mg PO QDAY 08/08/23 09/03/23 08:00 History metformin 500 mg tablet,extended 1,000 mg PO QDAY 08/08/23 09/03/23 08:00 History release 24 hr rosuvastatin 5 mg tablet 5 mg PO QDAY 08/08/23 09/03/23 08:00 History Allergy/AdvReac Type Severity Reaction Status Date / Time No Known Allergies Allergy Verified 09/04/23 10:04 Social History Smoking Status: Current every day smoker tobacco type: cigarettes alcohol intake: never substance use type: does not use Review of Systems (Anesthesia) ROS Narrative System reviewed and no additional complaints, except as documented.
--- NOTE | 2023-09-04 10:46 | PCM.HP.BLA ---
History and Physical Date of Admission: 09/04/23 Intake Vital Signs 01/22/2009:53 08/07/2406:51 Height 5 ft 7 in 5 ft 7 in Weight: 158 lb 8 oz BMI 24.8 BP 117/81 H Blood Pressure Location Rt brachial Position Sitting Respiration 18 Pulse 80 Pulse Source Monitor Temp 97.6 F L Temp Source Temporal Pulse Oximetry (%) 98 Oxygen Delivery Method room air Intake Visit Reasons: INGUINAL HERNIA Chief Complaint: inguinal hernia Accompanied by: Is patient in pain?: No Allergies No Known Allergies Allergy (Verified 08/08/23 07:52) Medications ?Medication ?Instructions ?Recorded ?Confirmed ?Type lisinopril 5 mg tablet 5 mg PO QDAY 08/08/23 08/08/23 History metformin 500 mg tablet,extended 1,000 mg PO QDAY 08/08/23 08/08/23 History release 24 hr rosuvastatin 5 mg tablet 5 mg PO QDAY 08/08/23 08/08/23 History PFSH Medical History Stomach ulcer Liver disease Hypertension Social History (Updated 08/08/23 @ 07:51 by Fadumo Gustafson LPN) Smoking Status: Current every day smoker tobacco type: cigarettes Smoking packs per day: 1.5 Smoking cigarettes per day: 30.0 alcohol intake: never substance use type: does not use HPI HPI HPI: Patient is a 53-year-old male here for right groin bulging. Patient reports has been out for several months. He denies nausea or vomiting. He says it is painful especially with lifting. He denies pain on the opposite side. He denies fevers or chills. He says that he is easily pushed back in. ROS General General: No weight change, appetite, fatigue, colon cancer, breast cancer or weakness HEENT HEENT: No difficulty swallowing, eye injury, eye surgery, swollen glands or hoarseness Endo Endocrine: Yes diabetes mellitus; No thyroid disease, thyroid cancer, Hair loss, heat intolerance or cold intolerance Skin Skin: No rash or changing moles Musc Musculoskeletal: No back problems, arthritis, rheumatoid arthritis, gout or joint pain Cardio Cardiovascular: Yes high blood pressure; No murmur, pacemaker, heart disease, atrial fibrillation, heart attack, heart stent, palpitations, shortness of breat with exertion or chest pain Psych Psychiatric: No depression, anxiety or hearing voices Resp Respiratory: No shortness of breath, No sleep apnea, No cough, No COPD, No asthma, No emphysema and No wheezing Gastro Gastrointestinal: No abdominal pain, No nausea or vomiting, No diarrhea, No constipation, No blood in stool, No acid reflux, No hemorrhoids, No ulcers, No gallbladder problem and No black,tarry stools Jeff Hematologic: No blood thinners, No blood disorders, No bleeding, No anemia and No blood clots Neuro Neurologic: No numbness, No tingling and No weakness Exam Const General: cooperative Orientation: alert and oriented x3 HENMT Head: normal to inspection Neck Neck: normal visual inspection and full ROM Chest Chest palpation & inspection: normal inspection of the chest Resp Effort & Inspection: normal respiratory effort Auscultation: clear to auscultation bilaterally Cardio Rate: regular rate Rhythm: regular rhythm GI Inspection: non-distended Palpation: soft, hernia indirect inguinal on the right and nontender Skin General: no rashes or lesions noted Neuro General: patient alert and patient oriented x3 Extrem General: full ROM Psych Appearance: grossly normal Mental Status: mental status grossly normal Assessment and Plan Assessment and Plan (1) Right inguinal hernia: Status: Acute Plan: Patient has a right inguinal hernia which has been bothering him for few months. I discussed robotic assisted laparoscopic inguinal hernia repair with mesh. I discussed the risks including but not limited to bleeding, infection, injury to underlying organs such as the bowel, bladder, blood supply to the testicle. I discussed the possibility of chronic groin pain. Patient understands the risks and is willing to proceed. I discussed mesh placement in detail. Saqib Tanner MD Pager: [facility] [address] [place] [address], [address] [place] [address] Office: I have examined the patient and the H&P has been reviewed. There are no clinical changes since date of exam.
[2023-09-04] MEDS: Cefazolin 2 GM in 0.9% Normal Saline (100mL Bag) 100 ML IV (11:04)
[2023-09-04] MEDS: Bupivacaine Mpf 0.5% 30 ML VIAL (11:49)
--- NOTE | 2023-09-04 11:59 | PCM.OPRPT ---
Report of Operation Date of Procedure: 09/04/23 Pre-Operative Diagnosis: Right inguinal hernia Post-Operative Diagnosis: Same Surgery/Procedure Performed:: Robotic assisted right inguinal hernia repair with mesh Type of Anesthesia: General/Regional Estimated Blood Loss (mL): 10 Description of Procedure: Patient was brought back to the operating room and general anesthesia was induced. The abdomen was prepped and draped in usual sterile fashion. Midline incision was made superior to the umbilicus and deepened to the fascia. The fascia was elevated and a Veress needle was placed into the abdomen. The abdomen is insufflated 15 mmHg. The Veress needle was removed after a drop test was performed. A port was placed into the abdomen and then the camera was placed into the abdomen there were no injuries from entry. Patient was placed in Trendelenburg position. The inguinal areas were inspected the patient had a right inguinal hernia and the left appeared normal. Next under direct visualization an 8 mm port was placed in the right lateral sidewall as well as left lateral sidewall and then the robot was docked. Using electrocautery scissors an incision was made in the peritoneum in the right lower quadrant. Dissection was carried inferiorly until the hernia sac was encountered and it was dissected free circumferentially and reduced. Dissection was carried more posteriorly and then a ProGrip mesh was placed in the right groin and unfolded completely covering the hernia defect. The peritoneum was reapproximated using a running 3-0 V-loc suture. The mesh was completely covered by peritoneum at the end of the case. The air was allowed to desufflate from the abdomen and the ports were removed. Incisions were injected with local anesthetic and closed with interrupted 4-0 Monocryl sutures. Steri-Strips and bandages were applied. Scrotum was checked at the end the case and contain both testicles. Patient was awoken and taken to PACU in stable condition and tolerated the procedure well. Grafts/Implants Used: ProGrip mesh in the right groin Admit VTE Documentation VTE Mechan Device Prophylaxis: SCD's
--- NOTE | 2023-09-04 12:04 | DCINST_ITS ---
Discharge Instructions Procedure Hernia Diet Discharge Diet: Light diet - advance as tolerated Activity Discharge Activity: May Not Drive (for 2-3 days or while taking narcotic pain meds.) and May Shower (with the bandage in place 1-2 days after surgery.) Lifting Restrictions: 20 pounds for 4 weeks. Additional Activity Instructions:: Climbing stairs is fine, walking is encouraged. Sitting in bed may be uncomfortable. Sitting up using your lateral muscles (sitting up sideways) is usually more comfortable. Do not drive, work heavy equipment of sign legal documents for 24 hours. If your hernia repair was an inguinal repair, you may have scrotal swelling, an ice pack and/or athletic support can provide more comfort. Pain medications may cause nausea, you should typically eat light foods as you take your pain medications. Pain medications may also cause constipation. If you have difficulty with this, discuss with your doctor. Alternate ibuprofen and Tylenol for pain, oxycodone for breakthrough pain. Dressing / Incision Call your doctor if your incision/area has: Continuous Slow Oozing, Sudden Increased Bleeding, Increased Pain/ Swelling, Increased Redness and Foul Smelling Discharge Call your doctor if you observe: Fever of 101 or Higher Suture Line Care: Avoid Pulling/Pushing and Avoid Pinching/Bending Remove Dressing in: 2 days (Remove clear bandages in 2 days, remove Steri-Strips in 7 to 10 days.) Cleanse incision/area with: Soap & Water Follow Up Care Please Follow Up With: Saqib Tanner MD When: Please call to schedule 2 week follow up appointment. [phone] Test Results: Test results from this visit will be discussed in further detail at your follow- up appointment, if applicable. Discharge Plan Admission Attending Provider: Saqib Tanner Primary Care Provider: Frankie Cope Consulting Providers: Shivam Lopez Instructions Print Language: Guinean Discharge Orders/Prescriptions Prescriptions: New oxycodone 5 mg Tablet 5 - 10 mg PO Q4H PRN PRN (Reason: Pain Score 4-10) 5 Days Qty: 10 0RF Continued lisinopril 5 mg tablet 5 mg PO QDAY metformin 500 mg tablet extended release 24 hr 1,000 mg PO QDAY rosuvastatin 5 mg tablet 5 mg PO QDAY Referrals / Follow Up: Frankie Cope MD [Primary Care Provider] - Disposition Disposition (needs filled in before D/C Order can be placed): Home, Self Care
--- NOTE | 2023-09-04 12:18 | PCM.POST.ANE ---
Anesthesia: Postop Eval I Current Vital Signs Temperature: 97.6 F Pulse Rate: 82 Blood Pressure: 112/76 Respiratory Rate: 24 Pulse Ox: 100 Oxygen Delivery Method: Nasal Cannula Oxygen Flow Rate (L/min): 4 Assessment Airway patent: Yes Spontaneous unlabored respirations: Yes Mental status: Awake and Calm nausea: No Vomiting: No Anesthesia Complication: No Fluid Hydration Crystalloid volume administer (ml): 950 Total IV fluid infused: 950 Progress Note Anesthesia document: Postop Eval 1 completed: Yes
[2023-09-04] MEDS: oxyCODONE 5 MG Tablet PO (13:11)
--- NOTE | 2023-09-04 13:23 | POSTOPAN2_ITS ---
Anesthesia Postop Eval I Sum Postop Eval Completion status Anesthesia document: Postop Eval 1 completed: Yes Anesthesia Postop Eval I Summary Anesthesia Postop Eval I Summary: Anesthesia Postop Eval I: Assessment Summary Airway patent Yes 09/04/23 12:19 JOSS [email or web address] Spontaneous unlabored Yes 09/04/23 12:19 JOSS [email or web address] [email or web address] respirations Mental status Awake,Calm 09/04/23 12:19 JOSS [email or web address] nausea No 09/04/23 12:19 JOSS HOUSE [email or web address] Vomiting No 09/04/23 12:19 JOSS HOUSE [email or web address] Anesthesia Postop Eval I: Fluid Summary Crystalloid volume administer 950 09/04/23 12:19 JOSS [email or web address] (ml) Colloids volume administered ( ml) Blood Product volume administered (ml) Total IV fluid infused 950 09/04/23 12:19 JOSS HOUSE [email or web address] Anesthesia Postop Eval I: Summary Notes Anesthesia Complication No 09/04/23 12:19 JOSS HOUSE [email or web address] Anesthesia Complication Comment: Post-operative progress note Anesthesia: Postop Eval II Evaluation Mental status: Awake Pain Level: 0 nausea: No Vomiting: No
--- NOTE | 2023-09-04 13:23 | PCM.POSTANE2 ---
Anesthesia Postop Eval I Sum Postop Eval Completion status Anesthesia document: Postop Eval 1 completed: Yes Anesthesia Postop Eval I Summary Anesthesia Postop Eval I Summary: Anesthesia Postop Eval I: Assessment Summary Airway patent Yes 09/04/23 12:19 RECORDS [email or web address] Spontaneous unlabored Yes 09/04/23 12:19 RECORDS [email or web address] respirations Mental status Awake,Calm 09/04/23 12:19 RECORDS [email or web address] nausea No 09/04/23 12:19 RECORDS [email or web address] Vomiting No 09/04/23 12:19 RECORDS [email or web address] Anesthesia Postop Eval I: Fluid Summary Crystalloid volume administer 950 09/04/23 12:19 RECORDS [email or web address] (ml) Colloids volume administered ( ml) Blood Product volume administered (ml) Total IV fluid infused 950 09/04/23 12:19 RECORDS [email or web address] Anesthesia Postop Eval I: Summary Notes Anesthesia Complication No 09/04/23 12:19 RECORDS [email or web address] Anesthesia Complication Comment: Post-operative progress note Anesthesia: Postop Eval II Evaluation Mental status: Awake Pain Level: 0 nausea: No Vomiting: No
== END 2023-09-04 14:08 | disposition home or self-care (01) ==
LOC: SDC 09:18 → AC 09:19
PROVIDERS: Anesthesiology; PCP Family Medicine; Referring Provider Surgery; Visit Provider Surgery
PROC: (CPT 49650; principal; 2023-09-04 10:40)
DX: K40.90 Unilateral inguinal hernia, without obstruction or gangrene, not specified as recurrent (principal); E11.9 Type 2 diabetes mellitus without complications; F17.210 Nicotine dependence, cigarettes, uncomplicated; I10 Essential (primary) hypertension; Z79.84 Long term (current) use of oral hypoglycemic drugs; E78.00 Pure hypercholesterolemia, unspecified
CPT/HCPCS: 49650; S2900; 00840; 36415; 80048; 80076; 82962; 83036; 85027; 93005; J7120; J2405

== ENCOUNTER → 2023-10-12 | Outpatient (CLI) | payer BC, SELFPAY ==
[2023-10-12 08:54] LABS: Cholesterol 106 mg/dL (200); High Density Lipoprotein 40 mg/dL; PSA,Total - Annual Screen 1.62 ng/mL (0.00-4.00); Triglycerides 127 mg/dL; Very Low Density Lipoprotein 25 mg/dL (5-40)
[2023-10-12 10:50] LABS: Microalbumin,Random Urine 5.1 mg/L (NO RANGE EST.)
== END | disposition home or self-care (01) ==
LOC: LAB 07:27
PROVIDERS: PCP Family Medicine; Referring Provider Family Medicine; Visit Provider Family Medicine
DX: Z00.00 Encounter for general adult medical examination without abnormal findings (principal); E11.9 Type 2 diabetes mellitus without complications
CPT/HCPCS: 36415; 80061; 82043; 82570; 84153; G0103

== ENCOUNTER → 2024-04-07 | Outpatient (CLI) | payer BC, SELFPAY ==
[2024-04-07 11:01] LABS: ALB/GLOB Ratio 1.2 RATIO (0.9-2.4); AST(SGOT) 14 U/L (15-37); Alanine Aminotransfer ALT/SGPT 17 U/L (16-61); Alkaline Phosphatase 90 U/L (45-117); Anion Gap 10 (5-15); BUN 21 mg/dL (7-18); BUN/Creat Ratio 18.3 RATIO (10-20); Calcium,Total 8.8 mg/dL (8.5-10.1); Chloride 107 mmol/L (98-107); Cholesterol 115 mg/dL (200); Creatinine, Serum 1.15 mg/dL (0.70-1.30); EST Glomerular Filtration Rate 70 mL/min (>60); Est Glom Filt Rate - Afr Amer 85 mL/min (>60); Globulin 3.2 g/dL (2.2-4.2); Glucose 133 mg/dL (74-106); High Density Lipoprotein 41 mg/dL; Potassium 3.9 mmol/L (3.5-5.1); Protein, Total 7.2 g/dL (6.4-8.2); Sodium Level 138 mmol/L (136-145); Triglycerides 102 mg/dL; Very Low Density Lipoprotein 20 mg/dL (5-40)
[2024-04-07 11:05] LABS: Protein, Urine (Random) 12.6 mg/dL (<11.9); Protein:Creat Ratio 97 mg/g CRE (0-200)
== END | disposition home or self-care (01) ==
LOC: MFPLAB 08:26
PROVIDERS: PCP Family Medicine; Referring Provider Family Medicine; Visit Provider Family Medicine
DX: E11.59 Type 2 diabetes mellitus with other circulatory complications (principal); I10 Essential (primary) hypertension
CPT/HCPCS: 36415; 80053; 80061; 82570; 84156

== ENCOUNTER → 2024-10-28 | Outpatient (CLI) | payer BC, SELFPAY ==
--- OUTSIDE RECORDS SUMMARY | 2024-10-28 06:58 | XMS RPT_ITS | CCD ---
Author Organization [facility] Informat ion Partnership [facility] Care Team Providers Care Basin Cleaner Name Role Phone Saqib Tanner Attending Unavailable Anatoliy, Frankie Primary Care Unavailable Saqib Tanner Referring Unavailable Shivam Lopez Consulting Unavailable Flores, Saqib Consulting Unavailable Anatoliy, Frankie Primary Care Unavailable Jessica, Shivam Referring Unavailable Franco Lorenz Attending Unavailable Anatoliy, Frankie Primary Care Unavailable Cope, Frankie Referring Unavailable Radha Martinez Attending Unavailable Flores, Saqib Attending Unavailable Anatoliy, Frankie Primary Care Unavailable Anatoliy, Frankie Referring Unavailable Anatoliy, Frankie Attending Unavailable Anatoliy, Frankie Referring Unavailable Cope, Frankie Primary Care Unavailable Cope, Frankie Primary Care Unavailable Anatoliy, Frankie Attending Unavailable Anatoliy, Frankie Referring Unavailable Flores, Saqib Attending Unavailable Anatoliy, Frankie Primary Care Unavailable Flores, Saqib Referring Unavailable Shivam Lopez Consulting Unavailable Medications Current Medications Medication Drug Class(es) Dates Sig (Normalized) Sig (Original) linseed oil 1000 mg oral capsule (1 source) Start: 01-20-2020 take 1000 mg by mouth once daily Flaxseed Oil Active 1000 MG PO DAILY January 20, 2020 12:00am lisinopril 10 mg oral tablet (1 source) Angiotensin Converting Enzyme Inhibitor Start: 09-08-2018 take 10 mg by mouth once daily Lisinopril Active 10 MG PO DAILY September 07, 2018 11:00pm Morven 4-Hbd-Spw-Fish Oil (1 source) Start: 01-20-2020 take 1500 mg by mouth once daily Morven 0-Ehj-Hjm-Fish Oil Active 1500 MG PO DAILY January 20, 2020 12:00am Problems Active Problems Problem Classification Problem Date Documented Da te Episodic/Chronic Diabetes mellitus with complications (1 source) Type 2 diabetes mellitus with other circulatory complications; Translations: [Type 2 diabetes mellitus with other circulatory complications] Onset: 04-20-2024 Chronic Past or Other Problems Problem Classification Problem Date Documented Da te Episodic/Chronic Abdominal hernia (1 source) Unilateral inguinal hernia, without obstruction or gangrene, not specified as recurrent; Translations: [Unilateral inguinal hernia, without obstruction or gangrene, not specified as recurrent] Onset: 09-18-2023 Episodic Results Test Name Value Interpretation Reference Range Facility Comprehensive Metabolic Prof [facility] 04-07-2024 Albumin [Mass/Vol] 4.0 g/dL Normal 3.2-5.0 [facility] Comment on above: Performed By: #### L 500.4050, L500.4100, L501.0900 #### [facility] [address] [place], [address] Albumin/Globulin [Mass ratio] 1.2 {ratio} Normal 0.9-2.4 [facility] Comment on above: Performed By: #### L 500.4050, L500.4100, L501.0900 #### [facility] [address] [place], [address] ALK P 90 U/L Normal 45-117 [facility] Comment on above: Performed By: #### L 500.4050, L500.4100, L501.0900 #### [facility] [address] [place], [address] ALT [Catalytic activity/Vol] 17 U/L Normal 16-61 [facility] Comment on above: Performed By: #### L 500.4050, L500.4100, L501.0900 #### [facility] [address] [place], [address] AST [Catalytic activity/Vol] 14 U/L Low 15-37 [facility] Comment on above: Performed By: #### L 500.4050, L500.4100, L501.0900 #### [facility] [address] [place], [address] Bilirubin [Mass/Vol] 0.80 mg/dL Normal 0.20-1.00 [facility] Comment on above: Result Comment: For patients on eltrombopag therapy, use of Dimension [place] TBIL is not recommended. Performed By: #### L 500.4050, L500.4100, L501.0900 #### [facility] [address] [place], [address] BUN/CRE 18.3 RATIO Normal 10-20 [facility] Comment on above: Performed By: #### L 500.4050, L500.4100, L501.0900 #### [facility] [address] [place], [address] CA,Total 8.8 mg/dL Normal 8.5-10.1 [facility] Comment on above: Performed By: #### L 500.4050, L500.4100, L501.0900 #### [facility] [address] [place], [address] Chloride [Moles/Vol] 107 mmol/L Normal 98-107 [facility] Comment on above: Performed By: #### L 500.4050, L500.4100, L501.0900 #### [facility] [address] [place], [address] CO2 [Moles/Vol] 22.0 mmol/L Normal 21.0-32.0 [facility] Comment on above: Performed By: #### L 500.4050, L500.4100, L501.0900 #### [facility] [address] [place], [address] Creatinine [Mass/Vol] 1.15 mg/dL Normal 0.70-1.30 [facility] Comment on above: Result Comment: The validity of the calculated GFR GFRAA in patients over 70 years has not been determined. Clinical correlation is essential. Performed By: #### L 500.4050, L500.4100, L501.0900 #### [facility] [address] [place], [address] EST GFR - AA 85 mL/min Normal >60 [facility] Comment on above: Result Comment: Afri can Niuean GFR Calc Performed By: #### L 500.4050, L500.4100, L501.0900 #### [facility] [address] [place], [address] GAP 10 Normal 5-15 [facility] Comment on above: Performed By: #### L 500.4050, L500.4100, L501.0900 #### [facility] [address] [place], [address] GFR/1.73 sq M.predicted among non-blacks MDRD (S/P/Bld) [Vol rate/Area] 70 mL/min/{1.73_m2} Normal >60 [facility] Comment on above: Result Comment: Non- GFR Calc Performed By: #### L 500.4050, L500.4100, L501.0900 #### [facility] [address] [place], [address] Globulin (S) [Mass/Vol] 3.2 g/dL Normal 2.2-4.2 [facility] Comment on above: Performed By: #### L 500.4050, L500.4100, L501.0900 #### [facility] [address] [place], [address] Glucose [Mass/Vol] 133 mg/dL High 74-106 [facility] Comment on above: Result Comment: Fast ing Glucose result greater than or equal to 126 mg/dL suggests DIABETES MELLITUS per A.D.A. criteria. Performed By: #### L 500.4050, L500.4100, L501.0900 #### [facility] [address] [place], [address] Potassium [Moles/Vol] 3.9 mmol/L Normal 3.5-5.1 [facility] Comment on above: Performed By: #### L 500.4050, L500.4100, L501.0900 #### [facility] [address] [place], [address] Sodium [Moles/Vol] 138 mmol/L Normal 136-145 [facility] Comment on above: Performed By: #### L 500.4050, L500.4100, L501.0900 #### [facility] [address] [place], [address] T PROT 7.2 g/dL Normal 6.4-8.2 [facility] Comment on above: Performed By: #### L 500.4050, L500.4100, L501.0900 #### [facility] [address] [place], [address] Urea nitrogen [Mass/Vol] 21 mg/dL High - [facility] Comment on above: Performed By: #### L 500.4050, L500.4100, L501.0900 #### [facility] [address] [place], [address] Lipid Profileon 04-07-2024 Cholesterol [Mass/Vol] 115 mg/dL Normal 200 [facility] Comment on above: Result Comment: <200 mg/dL Desirable 200-240 mg/dL Borderline >240 mg/dL High Risk Performed By: #### L 100.0500, L501.9985, L500.3400, L500.2500 #### [facility] [address] [place], [address] Cholesterol in HDL [Mass/Vol] 41 mg/dL Normal [facility] Comment on above: Result Comment: The drugs N-Acetylcysteine and Metamizole may falsely depress this assay. Reference Range HDL <40 mg/dL Low HDL Cholesterol HDL >or= 60 mg/dL High HDL Cholesterol Performed By: #### L 100.0500, L501.9985, L500.3400, L500.2500 #### [facility] [address] [place], [address] Cholesterol in LDL [Mass/Vol] 54 mg/dL Normal 0-130 [facility] Comment on above: Performed By: #### L 100.0500, L501.9985, L500.3400, L500.2500 #### [facility] [address] [place], [address] Cholesterol in VLDL [Mass/Vol] 20 mg/dL Normal 5-40 [facility] Comment on above: Performed By: #### L 100.0500, L501.9985, L500.3400, L500.2500 #### [facility] [address] [place], [address] Triglyceride [Mass/Vol] 102 mg/dL Normal [facility] Comment on above: Result Comment: The drugs N-Acetylcysteine and Metamizole may falsely depress this assay. Serum Triglycerides Reference Interval Normal <150 mg/dL Borderline high 150 - 199 mg/dL High 200 - 499 mg/dL Very High > or = 500 mg/dL Performed By: #### L 100.0500, L501.9985, L500.3400, L500.2500 #### [facility] [address] [place], [address] Protein+Creatinine Ratio,Uri neon 04-07-2024 PROT:CRE RATIO 97 mg/g CRE Normal 0-200 [facility] Comment on above: Performed By: #### L 100.0500, L501.9985, L500.3400, L500.2500 #### [facility] [address] [place], [address] Protein (U) [Mass/Vol] 12.6 mg/dL High <11.9 [facility] Comment on above: Performed By: #### L 100.0500, L501.9985, L500.3400, L500.2500 #### [facility] [address] [place], [address] UR CREAT 130.00 mg/dL Normal NO RANGE EST. [facility] Comment on above: Performed By: #### L 100.0500, L501.9985, L500.3400, L500.2500 #### [facility] [address] [place], [address] Lipid Profileon 10-12-2023 Cholesterol [Mass/Vol] 106 mg/dL Normal 200 [facility] Comment on above: Result Comment: <200 mg/dL Desirable 200-240 mg/dL Borderline >240 mg/dL High Risk Performed By: #### L 502.0250, L501.9910, L500.4100 #### [facility] [address] [place], [address] Cholesterol in HDL [Mass/Vol] 40 mg/dL Normal [facility] Comment on above: Result Comment: The drugs N-Acetylcysteine and Metamizole may falsely depress this assay. Reference Range HDL <40 mg/dL Low HDL Cholesterol HDL >or= 60 mg/dL High HDL Cholesterol Performed By: #### L 502.0250, L501.9910, L500.4100 #### [facility] [address] [place], [address] Cholesterol in LDL [Mass/Vol] 41 mg/dL Normal 0-130 [facility] Comment on above: Performed By: #### L 502.0250, L501.9910, L500.4100 #### [facility] [address] [place], [address] Cholesterol in VLDL [Mass/Vol] 25 mg/dL Normal 5-40 [facility] Comment on above: Performed By: #### L 502.0250, L501.9910, L500.4100 #### [facility] [address] [place], [address] Triglyceride [Mass/Vol] 127 mg/dL Normal [facility] Comment on above: Result Comment: The drugs N-Acetylcysteine and Metamizole may falsely depress this assay. Serum Triglycerides Reference Interval Normal <150 mg/dL Borderline high 150 - 199 mg/dL High 200 - 499 mg/dL Very High > or = 500 mg/dL Performed By: #### L 502.0250, L501.9910, L500.4100 #### [facility] [address] [place], [address] Microalb:Creat Ratio,Random URon 10-12-2023 Creatinine [Mass/Vol] 102.00 mg/dL Normal NO RANGE EST . [facility] Comment on above: Performed By: #### L 502.0250, L501.9910, L500.4100 #### [facility] [address] [place], [address] MALB:CRE 5.0 mg/g CRE Normal <30 mg/g CRE [facility] Comment on above: Performed By: #### L 502.0250, L501.9910, L500.4100 #### [facility] [address] [place], [address] MICROALBUMIN,UR 5.1 mg/L Normal NO RANGE EST. [facility] Comment on above: Performed By: #### L 502.0250, L501.9910, L500.4100 #### [facility] [address] [place], [address] PSA,Total - Annual Screenon 10-12-2023 PSA,TOT SCREEN 1.62 ng/mL Normal 0.00-4.00 [facility] Comment on above: Result Comment: This test was performed using the TPSA assay method for the [employer] chemistry system. Values obtained with different assay methods cannot be used interchangably. When changing PSA assays in the course of monitoring a patient, additional sequential testing should be carried out to confirm baseline values. Performed By: #### L 502.0250, L501.9910, L500.4100 #### [facility] [address] [place], [address] Surgery Visit Reporton 09-18 Surgery Visit Report [facility] [address] [place] [address] OFFICE VISIT Date of Service: 09/19/23 MR#: [id number] Acct: [id number] Name: KENNEDY KUNZ Rep #: [id number] : 1970 Provider: RAS moctezuma Age/Sex: 53/M Location: [facility] Status: Signed Intake Vital Signs 09/04/23 10:07 Height 5 ft 6 in Intake Visit Reasons: HERNIA DOS 09/03 Chief Complaint: right inguinal hernia repair f/u Is patient in pain?: No Allergies No Known Allergies Allergy (Verified 09/19/23 07:53) Medications ???Medication ???Instructions ???Recorded ???Confirmed ???Type lisinopril 5 mg tablet 5 mg PO QDAY 08/08/23 09/19/23 History metformin 500 mg tablet,extended 1,000 mg PO QDAY 08/08/23 09/19/23 History release 24 hr rosuvastatin 5 mg tablet 5 mg PO QDAY 08/08/23 09/19/23 History Have you fallen in the past year?: No Subjective Details: Patient is a 53 y/o M s/p robotic assisted right inguinal hernia repair with mesh by Dr. Tanner on 09/04/23. Patient tolerated the procedure well. Patient denies nausea, vomiting, fever. Patient notes appetite has returned to normal. He notes bowel habits have returned to normal. He notes some numbness at the right groin region. He stated this was present prior to the surgery. He notes it may be a little less now than it was. He denies any incisional pain/discomfort. Objective Details: Abdomen- soft, nontender. Incisions c/d/i. No erythema or infection noted. Steri-strips still intact. Coding Level of Care Code Global Post Op Diagnoses Right inguinal hernia K40.90 [facility] Medical History No history of colonoscopy Loss of hearing Wears glasses Diabetes Hepatitis High cholesterol Smoker Liver disease Hypertension Surgical History (Updated 09/19/23 @ 07:54 by Fadumo Gustafson LPN) S/P right inguinal hernia repair Social History Smoking Status: Current every day smoker tobacco type: cigarettes alcohol intake: never substance use type: does not use Assessment and Plan (No Qualifiers) Assessment and Plan (1) Right inguinal hernia: Status: Acute Plan: Recommend no lifting greater than 20 pounds for 4 weeks Patient has already RTW I offered to remove steri-strips and patient preferred to keep them intact. Adhesive remover was provided and recommendations to remove the steri-strips in 1 week was discussed Follow-up as needed 09/19/23 0958 Date Radha Wilson Signature: Date (if applicable) CC: Dr. Frankie Cope MD Normal [facility] Bedside Glucoseon 09-04-2023 FINGERSTICK GLU 124 mg/dL High 74-106 [facility] Comment on above: Result Comment: DARLINE BOONE OF PATIENT CARE PER NURSING PROTOCOL Performed By: #### L 501.080 #### [facility] [address] [place], [address] Discharge Instructionon 08-19 Discharge Instruction [facility] Medical Records Department [address] [place] [address] Instructions for Home/Discharge Instructions 09/04/23 1204 MR#: [id number] Acct: [id number] Name: KENNEDY KUNZ Rep #: [id number] : 1970 53 From: Saqib Tanner MD PCP: Dr. Frankie Cope MD Status:REG [facility] Discharge Instructions Procedure Hernia Diet Discharge Diet: Light diet - advance as tolerated Activity Discharge Activity: May Not Drive (for 2-3 days or while taking narcotic pain meds.) and May Shower (with the bandage in place 1-2 days after surgery.) Lifting Restrictions: 20 pounds for 4 weeks. Additional Activity Instructions:: Climbing stairs is fine, walking is encouraged. Sitting in bed may be uncomfortable. Sitting up using your lateral muscles (sitting up sideways) is usually more comfortable. Do not drive, work heavy equipment of sign legal documents for 24 hours. If your hernia repair was an inguinal repair, you may have scrotal swelling, an ice pack and/or athletic support can provide more comfort. Pain medications may cause nausea, you should typically eat light foods as you take your pain medications. Pain medications may also cause constipation. If you have difficulty with this, discuss with your doctor. Alternate ibuprofen and Tylenol for pain, oxycodone for breakthrough pain. Dressing / Incision Call your doctor if your incision/area has: Continuous Slow Oozing, Sudden Increased Bleeding, Increased Pain/ Swelling, Increased Redness and Foul Smelling Discharge Call your doctor if you observe: Fever of 101 or Higher Suture Line Care: Avoid Pulling/Pushing and Avoid Pinching/Bending Remove Dressing in: 2 days (Remove clear bandages in 2 days, remove Steri-Strips in 7 to 10 days.) Cleanse incision/area with: Soap Water Follow Up Care Please Follow Up With: Saqib Tanner MD When: Please call to schedule 2 week follow up appointment. [phone] Test Results: Test results from this visit will be discussed in further detail at your follow-up appointment, if applicable. Discharge Plan Admission Attending Provider: Saqib Tanner Primary Care Provider: Frankie Cope Consulting Providers: Shivam Loepz Instructions Print Language: Barbadian Discharge Orders/Prescriptions Prescriptions: New oxycodone 5 mg Tablet 5 - 10 mg PO Q4H PRN PRN (Reason: Pain Score 4-10) 5 Days Qty: 10 0RF Continued lisinopril 5 mg tablet 5 mg PO QDAY metformin 500 mg tablet extended release 24 hr 1,000 mg PO QDAY rosuvastatin 5 mg tablet 5 mg PO QDAY Referrals / Follow Up: Frankie Cope MD [Primary Care Provider] - Disposition Disposition (needs filled in before D/C Order can be placed): Home, Self Care 09/04/23 1206 Saqib Tanner MD CC: Dr. Shivam Lopez MD; Dr. Frankie Cope MD Signed [facility] MR/POSTOP.Michael 09-04-2023 MR/POSTOP.[facility] Medical Records Department [address] [place] [address] Anesthesia Postop Eval I 09/04/23 1218 MR#: [id number] Acct: [id number] Name: KENNEDY KUNZ Rep #: [id number] : 1970 53 From: Kathy Cuba CRNA PCP: Dr. Frankie Cope MD Status:REG [facility] Y Race: A Location: [place] [address] Anesthesia: Postop Eval I Current Vital Signs Temperature: 97.6 F Pulse Rate: 82 Blood Pressure: 112/76 Respiratory Rate: 24 Pulse Ox: 100 Oxygen Delivery Method: Nasal Cannula Oxygen Flow Rate (L/min): 4 Assessment Airway patent: Yes Spontaneous unlabored respirations: Yes Mental status: Awake and Calm nausea: No Vomiting: No Anesthesia Complication: No Fluid Hydration Crystalloid volume administer (ml): 950 Total IV fluid infused: 950 Progress Note Anesthesia document: Postop Eval 1 completed: Yes 09/04/23 1219 Date Kathy Cuba TREASURY ACCOUNTANT Cosigner Signature: Date CC: Signed [facility] MR/POSTOP.[facility] Medical Records Department [address] [place] [address] Anesthesia Postop Eval I 09/04/23 0946 MR#: [id number] Acct: [id number] Name: KENNEDY KUNZ Rep #: [id number] : 1970 53 From: Kathy Cuba TREASURY ACCOUNTANT PCP: Dr. Frankie Cope MD Status:REG [place] Y Race: A Location: [place] [address] Anesthesia: Postop Eval I Current Vital Signs Temperature: 98.2 F Pulse Rate: 84 Blood Pressure: 120/66 Respiratory Rate: 20 Pulse Ox: 98 Oxygen Delivery Method: Room Air Assessment Airway patent: Yes Spontaneous unlabored respirations: Yes Mental status: Awake and Calm nausea: No Vomiting: No Anesthesia Complication: No Fluid Hydration Crystalloid volume administer (ml): 1,200 Total IV fluid infused: 1,200 Progress Note Anesthesia document: Postop Eval 1 completed: Yes 09/04/23 0947 Date Kathy Cuba TREASURY ACCOUNTANT Cosigner Signature: Date CC: Signed Normal [facility] [id number] 09-04-2023 MR[facility] Medical Records Department [address] [place] [address] Anesthesia Postop Eval II 09/04/23 1323 MR#: [id number] Acct: [id number] Name: KENNEDY KUNZ Rep #: [id number] : 1970 53 From: Shivam Lopez MD PCP: Dr. Frankie Cope MD Status:REG [facility] Y Race: A Location: [place] [address] Anesthesia Postop Eval I Sum Postop Eval Completion status Anesthesia document: Postop Eval 1 completed: Yes Anesthesia Postop Eval I Summary Anesthesia Postop Eval I Summary: Anesthesia Postop Eval I: Assessment Summary Airway patent Yes 09/04/23 12:19 TREASURY ACCOUNTANT.JDEF Spontaneous unlabored Yes 09/04/23 12:19 TREASURY ACCOUNTANT.JDEF respirations Mental status Awake,Calm 09/04/23 12:19 TREASURY ACCOUNTANT.JDEF nausea No 09/04/23 12:19 TREASURY ACCOUNTANT.JDEF Vomiting No 09/04/23 12:19 TREASURY ACCOUNTANT.JDEF Anesthesia Postop Eval I: Fluid Summary Crystalloid volume administer 950 09/04/23 12:19 TREASURY ACCOUNTANT.JDEF (ml) Colloids volume administered ( ml) Blood Product volume administered (ml) Total IV fluid infused 950 09/04/23 12:19 TREASURY ACCOUNTANT.JDEF Anesthesia Postop Eval I: Summary Notes Anesthesia Complication No 09/04/23 12:19 TREASURY ACCOUNTANT.JDEF Anesthesia Complication Comment: Post-operative progress note Anesthesia: Postop Eval II Evaluation Mental status: Awake Pain Level: 0 nausea: No Vomiting: No 09/04/23 1323 Date Shivam Wilson Signature: Date CC: Signed Normal [facility] Operative Reporton 4 Operative Report [facility] Medical Records Department [address] [place] [address] Operative Report 09/04/23 1159 MR#: [id number] Acct: [id number] Name: KENNEDY KUNZ Rep #: [id number] : 1970 53 From: Saqib Tanner MD PCP: Dr. Frankie Cope MD Status:[facility] Location: [place] [address] Report of Operation Date of Procedure: 09/04/23 Pre-Operative Diagnosis: Right inguinal hernia Post-Operative Diagnosis: Same Surgery/Procedure Performed:: Robotic assisted right inguinal hernia repair with mesh Type of Anesthesia: General/Regional Estimated Blood Loss (mL): 10 Description of Procedure: Patient was brought back to the operating room and general anesthesia was induced. The abdomen was prepped and draped in usual sterile fashion. Midline incision was made superior to the umbilicus and deepened to the fascia. The fascia was elevated and a Veress needle was placed into the abdomen. The abdomen is insufflated 15 mmHg. The Veress needle was removed after a drop test was performed. A port was placed into the abdomen and then the camera was placed into the abdomen there were no injuries from entry. Patient was placed in Trendelenburg position. The inguinal areas were inspected the patient had a right inguinal hernia and the left appeared normal. Next under direct visualization an 8 mm port was placed in the right lateral sidewall as well as left lateral sidewall and then the robot was docked. Using electrocautery scissors an incision was made in the peritoneum in the right lower quadrant. Dissection was carried inferiorly until the hernia sac was encountered and it was dissected free circumferentially and reduced. Dissection was carried more posteriorly and then a ProGrip mesh was placed in the right groin and unfolded completely covering the hernia defect. The peritoneum was reapproximated using a running 3-0 V-loc suture. The mesh was completely covered by peritoneum at the end of the case. The air was allowed to desufflate from the abdomen and the ports were removed. Incisions were injected with local anesthetic and closed with interrupted 4-0 Monocryl sutures. Steri-Strips and bandages were applied. Scrotum was checked at the end the case and contain both testicles. Patient was awoken and taken to PACU in stable condition and tolerated the procedure well. Grafts/Implants Used: ProGrip mesh in the right groin Admit VTE Documentation VTE Mechan Device Prophylaxis: SCD's 09/04/23 1203 Cosigner Signature (if applicable): CC: Dr. Saqib Tanner MD; Dr. Shivam Lopez MD; Dr. Frankie Cope MD Signed Normal [facility] 12 Lead EKGon 08-28-[address] [facility] [address] [place] [address] 12 Lead EKG 08/28/23 0813 MR#: [id number] Acct: [id number] Name: KENNEDY KUNZ Rep #: [id number] : 1970 53 From: Franco Lorenz MD Attending Dr: Dr. Saqib Tanner MD Status: PRE MIC Ordering Dr: Shivam Lopez MD Date: 08/28/23 Location: [facility] Sex: M A Admitted: Test Reason : PREOP Blood Pressure : / mmHG Vent. Rate : 068 BPM Atrial Rate : 068 BPM P-R Int : 124 ms QRS Dur : 070 ms QT Int : 378 ms P-R-T Axes : 103 056 036 degrees QTc Int : 401 ms Normal sinus rhythm Normal ECG Confirmed by Franco Lorenz ([id number]), research editor RADHA AUSTIN ([id number]) on 08/29/2023 9:57:58 AM Referred By: Saqib Tanner Confirmed By:Franco Lorenz 08/29/2358 Date Franco Lorenz MD CC: Dr. Saqib Tanner MD; Dr. Shivam Lopez MD; Dr. Frankie Cope MD Signed Normal [facility] Basic Metabolic Profile (BMP )on 08-28-2023 BUN/CRE 16.2 RATIO Normal 10-20 [facility] Comment on above: Order Comment: PT SA ID DR SAWYER BLOOD WORK WAS ALREADY DONE Performed By: #### L 100.0500, L501.9985, L500.3400, L500.2500 #### [facility] [address] [place], [address] CA,Total 8.4 mg/dL Low 8.5-10.1 [facility] Comment on above: Order Comment: PT SA ID DR SAWYER BLOOD WORK WAS ALREADY DONE Performed By: #### L 100.0500, L501.9985, L500.3400, L500.2500 #### [facility] [address] [place], [address] Chloride [Moles/Vol] 107 mmol/L Normal 98-107 [facility] Comment on above: Order Comment: PT SA ID DR SAWYER BLOOD WORK WAS ALREADY DONE Performed By: #### L 100.0500, L501.9985, L500.3400, L500.2500 #### [facility] [address] [place], [address] CO2 [Moles/Vol] 27.0 mmol/L Normal 21.0-32.0 [facility] Comment on above: Order Comment: PT SA ID DR SAWYER BLOOD WORK WAS ALREADY DONE Performed By: #### L 100.0500, L501.9985, L500.3400, L500.2500 #### [facility] [address] [place], [address] Creatinine [Mass/Vol] 0.92 mg/dL Normal 0.70-1.30 [facility] Comment on above: Order Comment: PT SA ID DR SAWYER BLOOD WORK WAS ALREADY DONE Result Comment: The validity of the calculated GFR GFRAA in patients over 70 years has not been determined. Clinical correlation is essential. Performed By: #### L 100.0500, L501.9985, L500.3400, L500.2500 #### [facility] [address] [place], [address] EST GFR - AA 110 mL/min Normal >60 [facility] Comment on above: Order Comment: PT SA ID DR SAWYER BLOOD WORK WAS ALREADY DONE Result Comment: Afri can Niuean GFR Calc Performed By: #### L 100.0500, L501.9985, L500.3400, L500.2500 #### [facility] [address] [place], [address] GAP 4 Low 5-15 [facility] Comment on above: Order Comment: PT SA ID DR SAWYER BLOOD WORK WAS ALREADY DONE Performed By: #### L 100.0500, L501.9985, L500.3400, L500.2500 #### [facility] [address] [place], [address] GFR/1.73 sq M.predicted among non-blacks MDRD (S/P/Bld) [Vol rate/Area] 91 mL/min/{1.73_m2} Normal >60 [facility] Comment on above: Order Comment: PT SA MARISOL SAWYER BLOOD WORK WAS ALREADY DONE Result Comment: Non- GFR Calc Performed By: #### L 100.0500, L501.9985, L500.3400, L500.2500 #### [facility] [address] [place], [address] Glucose [Mass/Vol] 146 mg/dL High 74-106 [facility] Comment on above: Order Comment: PT SA ID DR SAWYER BLOOD WORK WAS ALREADY DONE Result Comment: Fast ing Glucose result greater than or equal to 126 mg/dL suggests DIABETES MELLITUS per A.D.A. criteria. Performed By: #### L 100.0500, L501.9985, L500.3400, L500.2500 #### [facility] [address] [place], [address] Potassium [Moles/Vol] 4.1 mmol/L Normal 3.5-5.1 [facility] Comment on above: Order Comment: PT SA ID DR SAWYER BLOOD WORK WAS ALREADY DONE Performed By: #### L 100.0500, L501.9985, L500.3400, L500.2500 #### [facility] [address] [place], [address] Sodium [Moles/Vol] 138 mmol/L Normal 136-145 [facility] Comment on above: Order Comment: PT SA ID DR SAWYER BLOOD WORK WAS ALREADY DONE Performed By: #### L 100.0500, L501.9985, L500.3400, L500.2500 #### [facility] [address] [place], [address] Urea nitrogen [Mass/Vol] 15 mg/dL Normal 7-18 [facility] Comment on above: Order Comment: PT SA ID DR SAWYER BLOOD WORK WAS ALREADY DONE Performed By: #### L 100.0500, L501.9985, L500.3400, L500.2500 #### [facility] [address] [place], [address] CBC-Complete Blood Cnt No Di ffon 08-28-2023 Erythrocyte distribution width (RBC) [Ratio] 11.5 % Low 11.6-14.6 [facility] Comment on above: Performed By: #### L 100.0500, L501.9985, L500.3400, L500.2500 #### [facility] [address] [place], [address] Hematocrit (Bld) [Volume fraction] 45.7 % Normal 40-54 [facility] Comment on above: Performed By: #### L 100.0500, L501.9985, L500.3400, L500.2500 #### [facility] [address] [place], [address] Hemoglobin (Bld) [Mass/Vol] 15.3 g/dL Normal 13.0-16.5 [facility] Comment on above: Performed By: #### L 100.0500, L501.9985, L500.3400, L500.2500 #### [facility] [address] [place], [address] MCH (RBC) [Entitic mass] 31.2 pg Normal 27.0-32.0 [facility] Comment on above: Performed By: #### L 100.0500, L501.9985, L500.3400, L500.2500 #### [facility] [address] [place], [address] MCHC (RBC) [Mass/Vol] 33.5 g/dL Normal 32-36 [facility] Comment on above: Performed By: #### L 100.0500, L501.9985, L500.3400, L500.2500 #### [facility] [address] [place], [address] MCV (RBC) [Entitic vol] 93.3 fL Normal 80-94 [facility] Comment on above: Performed By: #### L 100.0500, L501.9985, L500.3400, L500.2500 #### [facility] [address] [place], [address] Platelet mean volume (Bld) [Entitic vol] 9.5 fL Normal 6.2-12.0 [facility] Comment on above: Performed By: #### L 100.0500, L501.9985, L500.3400, L500.2500 #### [facility] [address] [place], [address] Platelets (Bld) [#/Vol] 185 10*3/uL Normal 150-450 [facility] Comment on above: Performed By: #### L 100.0500, L501.9985, L500.3400, L500.2500 #### [facility] [address] [place], [address] RBC (Bld) [#/Vol] 4.90 10*6/uL Normal 4.6-6.2 [facility] Comment on above: Performed By: #### L 100.0500, L501.9985, L500.3400, L500.2500 #### [facility] [address] [place], [address] RDW SD 39.4 fl Normal 35.1-43.9 [facility] Comment on above: Performed By: #### L 100.0500, L501.9985, L500.3400, L500.2500 #### [facility] [address] [place], [address] WBC (Bld) [#/Vol] 6.1 10*3/uL Normal 4.4-11.0 [facility] Comment on above: Performed By: #### L 100.0500, L501.9985, L500.3400, L500.2500 #### [facility] [address] [place], [address] Hemoglobin A1con 08-28-2023 HbA1c (Bld) [Mass fraction] 7.0 % High 3.8-5.6 [facility] Comment on above: Result Comment: Norm al < 5.7 % Prediabetic 5.7 - 6.4 % Diabetic >or= 6.5 % Please note range changes. Performed By: #### L 100.0500, L501.9985, L500.3400, L500.2500 #### [facility] [address] [place], [address] Liver Profileon 08-28-2023 Albumin [Mass/Vol] 3.8 g/dL Normal 3.2-5.0 [facility] Comment on above: Order Comment: PT SA ID DR SAWYER BLOOD WORK WAS ALREADY DONE Performed By: #### L 100.0500, L501.9985, L500.3400, L500.2500 #### [facility] [address] [place], [address] ALK P 124 U/L High 45-117 [facility] Comment on above: Order Comment: PT SA ID DR SAWYER BLOOD WORK WAS ALREADY DONE Performed By: #### L 100.0500, L501.9985, L500.3400, L500.2500 #### [facility] [address] [place], [address] ALT [Catalytic activity/Vol] 20 U/L Normal 16-61 [facility] Comment on above: Order Comment: PT SA ID DR SAWYER BLOOD WORK WAS ALREADY DONE Performed By: #### L 100.0500, L501.9985, L500.3400, L500.2500 #### [facility] [address] [place], [address] AST [Catalytic activity/Vol] 14 U/L Low 15-37 [facility] Comment on above: Order Comment: PT SA ID DR SAWYER BLOOD WORK WAS ALREADY DONE Performed By: #### L 100.0500, L501.9985, L500.3400, L500.2500 #### [facility] [address] [place], [address] Bilirubin [Mass/Vol] 0.90 mg/dL Normal 0.20-1.00 [facility] Comment on above: Order Comment: PT SA ID DR SAWYER BLOOD WORK WAS ALREADY DONE Result Comment: For patients on eltrombopag therapy, use of Dimension [place] TBIL is not recommended. Performed By: #### L 100.0500, L501.9985, L500.3400, L500.2500 #### [facility] [address] [place], [address] Bilirubin.direct [Mass/Vol] 0.22 mg/dL Normal 0.00-0.30 [facility] Comment on above: Order Comment: PT SA ID DR SAWYER BLOOD WORK WAS ALREADY DONE Performed By: #### L 100.0500, L501.9985, L500.3400, L500.2500 #### [facility] [address] [facility] [address] Globulin (S) [Mass/Vol] 3.1 g/dL Normal 2.2-4.2 [facility] Comment on above: Order Comment: PT SA ID DR SAWYER BLOOD WORK WAS ALREADY DONE Performed By: #### L 100.0500, L501.9985, L500.3400, L500.2500 #### [facility] [address] [place], [address] T PROT 6.9 g/dL Normal 6.4-8.2 [facility] Comment on above: Order Comment: PT SA ID DR SAWYER BLOOD WORK WAS ALREADY DONE Performed By: #### L 100.0500, L501.9985, L500.3400, L500.2500 #### [facility] [address] [place], [address] Surgery Visit Reporton 08-07 Surgery Visit Report [facility] [address] [place] [address] OFFICE VISIT Date of Service: 08/08/23 MR#: [id number] Acct: [id number] Name: KENNEDY KUNZ Rep #: [id number] : 1970 Provider: Dr. Saqib blackwell MD Age/Sex: 53/M Location: [facility] Status: Signed Intake Vital Signs 01/23/20 09:53 08/08/23 07:51 Height 5 ft 7 in 5 ft 7 in Weight: 158 lb 8 oz BMI 24.8 BP 117/81 H Blood Pressure Location Rt brachial Position Sitting Respiration 18 Pulse 80 Pulse Source Monitor Temp 97.6 F L Temp Source Temporal Pulse Oximetry (%) 98 Oxygen Delivery Method room air Intake Visit Reasons: INGUINAL HERNIA Chief Complaint: inguinal hernia Accompanied by: Is patient in pain?: No Allergies No Known Allergies Allergy (Verified 08/08/23 07:52) Medications ???Medication ???Instructions ???Recorded ???Confirmed ???Type lisinopril 5 mg tablet 5 mg PO QDAY 08/08/23 08/08/23 History metformin 500 mg tablet,extended 1,000 mg PO QDAY 08/08/23 08/08/23 History release 24 hr rosuvastatin 5 mg tablet 5 mg PO QDAY 08/08/23 08/08/23 History PFSH Medical History Stomach ulcer Liver disease Hypertension Social History (Updated 08/08/23 @ 07:51 by Fadumo Gustafson LPN) Smoking Status: Current every day smoker tobacco type: cigarettes Smoking packs per day: 1.5 Smoking cigarettes per day: 30.0 alcohol intake: never substance use type: does not use HPI HPI HPI: Patient is a 53-year-old male here for right groin bulging. Patient reports has been out for several months. He denies nausea or vomiting. He says it is painful especially with lifting. He denies pain on the opposite side. He denies fevers or chills. He says that he is easily pushed back in. ROS General General: No weight change, appetite, fatigue, colon cancer, breast cancer or weakness HEENT HEENT: No difficulty swallowing, eye injury, eye surgery, swollen glands or hoarseness Endo Endocrine: Yes diabetes mellitus; No thyroid disease, thyroid cancer, Hair loss, heat intolerance or cold intolerance Skin Skin: No rash or changing moles Musc Musculoskeletal: No back problems, arthritis, rheumatoid arthritis, gout or joint pain Cardio Cardiovascular: Yes high blood pressure; No murmur, pacemaker, heart disease, atrial fibrillation, heart attack, heart stent, palpitations, shortness of breat with exertion or chest pain Psych Psychiatric: No depression, anxiety or hearing voices Resp Respiratory: No shortness of breath, No sleep apnea, No cough, No COPD, No asthma, No emphysema and No wheezing Gastro Gastrointestinal: No abdominal pain, No nausea or vomiting, No diarrhea, No constipation, No blood in stool, No acid reflux, No hemorrhoids, No ulcers, No gallbladder problem and No black,tarry stools Jeff Hematologic: No blood thinners, No blood disorders, No bleeding, No anemia and No blood clots Neuro Neurologic: No numbness, No tingling and No weakness Exam Const General: cooperative Orientation: alert and oriented x3 HENMT Head: normal to inspection Neck Neck: normal visual inspection and full ROM Chest Chest palpation inspection: normal inspection of the chest Resp Effort Inspection: normal respiratory effort Auscultation: clear to auscultation bilaterally Cardio Rate: regular rate Rhythm: regular rhythm GI Inspection: non-distended Palpation: soft, hernia indirect inguinal on the right and nontender Skin General: no rashes or lesions noted Neuro General: patient alert and patient oriented x3 Extrem General: full ROM Psych Appearance: grossly normal Mental Status: mental status grossly normal Assessment and Plan Assessment and Plan (1) Right inguinal hernia: Status: Acute Plan: Patient has a right inguinal hernia which has been bothering him for few months. I discussed robotic assisted laparoscopic inguinal hernia repair with mesh. I discussed the risks including but not limited to bleeding, infection, injury to underlying organs such as the bowel, bladder, blood supply to the testicle. I discussed the possibility of chronic groin pain. Patient understands the risks and is willing to proceed. I discussed mesh placement in detail. Saqib Tanner MD Pager: [facility] [address] [place] [address], [address] [place] [address] Office: Coding Level of Care Code Off vis,new,level 4 Diagnoses Right inguinal hernia K40.90 08/08/23 0912 Date Saqib Tanner MD Cosign Signature: Date ____ (more content not included)... Normal [facility] Basophil percentageOrdered B y: Frankie Cope on 01-20-2023 Bilirubin [Mass/Vol] 0.70 mg/dL 0.20-1.00 [facility] Comment on above: For patients on eltr ombopag therapy, use of Dimension [place] TBIL is not recommended. Chloride [Moles/Vol] 109 mmol/L 98-107 [facility] Cholesterol [Mass/Vol] 199 mg/dL <200 [facility] Comment on above: <200 mg/dL Desirable 200-240 mg/dL Borderline >240 mg/dL High Risk Glucose [Mass/Vol] 152 mg/dL 74-106 [facility] Comment on above: Fasting Glucose resu lt greater than or equal to 126 mg/dL suggests DIABETES MELLITUS per A.D.A. criteria. Potassium [Moles/Vol] 4.0 mmol/L 3.5-5.1 [facility] Protein [Mass/Vol] 7.3 g/dL 6.4-8.2 [facility] Sodium [Moles/Vol] 139 mmol/L 136-145 [facility] Triglyceride [Mass/Vol] 102 mg/dL <199 [facility] Comment on above: The drugs N-Acetylcy steine and Metamizole may falsely depress this assay.Serum Triglycerides Reference Interval Normal <150 mg/dL Borderline high 150 - 199 mg/dL High 200 - 499 mg/dL Very High > or = 500 mg/dL Laboratory - Chemistry and C hemistry - challengeOrdered By: Frankie Cope on 01-20-2023 ALP [Catalytic activity/Vol] 107 U/L 45-117 [facility] ALT [Catalytic activity/Vol] 17 U/L 16-61 [facility] CO2 [Moles/Vol] 24.0 mmol/L 21.0-32.0 [facility] Globulin (S) [Mass/Vol] 3.3 g/dL 2.2-4.2 [facility] Urea nitrogen/Creatinine [Mass ratio] 15.6 mg/mg 10-20 [facility] No Panel InformationOrdered By: Frankie Cope on 01-20-2023 Estimated GFR (MDRD) Amer 91 mL/min >60 [facility] Comment on above: GFR Calc Estimated GFR (MDRD) Non-Af Amer 75 mL/min >60 [facility] Comment on above: Non- GFR Calc Urine Microalbumin/Creatinine Ratio 5.7 mg/g CRE <30 [facility] Serum or plasma albumin gómez urement (mass/volume)Ordered By: Frankie Cope on 01-20-2023 Albumin [Mass/Vol] 4.0 g/dL 3.2-5.0 [facility] Serum or plasma albumin/glob ulin mass ratioOrdered By: Frankie Cope on 01-20-2023 Albumin/Globulin [Mass ratio] 1.2 {ratio} 0.9-2.4 [facility] Serum or plasma calcium gómez urement (mass/volume)Ordered By: Frankie Cope on 01-20-2023 Calcium [Mass/Vol] 8.9 mg/dL 8.5-10.1 [facility] Serum or plasma cholesterol in HDL measurement (mass/volume)Ordered By: Frankie Cope on 01-20-2023 Cholesterol in HDL [Mass/Vol] 39 mg/dL >40 [facility] Comment on above: The drugs N-Acetylcy steine and Metamizole may falsely depress this assay. Reference Range HDL <40 mg/dL Low HDL Cholesterol HDL >or= 60 mg/dL High HDL Cholesterol Serum or plasma cholesterol in VLDL measurement (mass/volume)Ordered By: Frankie Cope on 01-20-2023 Cholesterol in VLDL [Mass/Vol] 20 mg/dL 5-40 [facility] Serum or plasma creatinine m easurement (mass/volume)Ordered By: Frankie Cope on 01-20-2023 Creatinine [Mass/Vol] 1.09 mg/dL 0.70-1.30 [facility] Comment on above: The validity of the calculated GFR & GFRAA in patients over 70 years has not been determined. Clinical correlation is essential. Serum or plasma low density lipoprotein (LDL) cholesterol measurement (mass/volume)Ordered By: Frankie Cope on 01-20-2023 Cholesterol in LDL [Mass/Vol] 140 mg/dL 0-130 [facility] Serum or plasma urea nitroge n measurement (mass/volume)Ordered By: Frankie Cope on 01-20-2023 Urea nitrogen [Mass/Vol] 17 mg/dL 7-18 [facility] Thin prep Papanicolaou smear with manual screeningOrdered By: Frankie Cope on 01-20-2023 Thin prep Papanicolaou smear with manual screening 9 U/L 15-37 [facility] Thin prep Papanicolaou smear with manual screening 6 5-15 [facility] Thin prep Papanicolaou smear with manual screening 11.4 mg/L NO RANGE EST. [facility] Urine creatinine measurement (mass/volume)Ordered By: Frankie Cope on 01-20-2023 Creatinine (U) [Mass/Vol] 200.00 mg/dL NO RANGE EST. [facility] Encounters Encounter Date Encounter Type Care Provider Facility Start: 04-07-2024 End: 04-07-2024 ambulatory Frankie [facility] Facility:[facility] Start: 10-30-2023 Encounter for genera l adult medical examination without abnormal findings Frankie Cope [facility] Start: 10-12-2023 End: 10-12-2023 ambulatory Frankie Cope Facility:[facility] Start: 09-19-2023 End: 09-19-2023 ambulatory Frankie Cope Facility:[facility] Start: 09-18-2023 Encounter for other preprocedural examination Saqib Tanner [facility] Start: 09-04-2023 ambulatory Saqib Tanner Faci lity:[facility] Start: 09-04-2023 End: 09-04-2023 ambulatory Saqib Tanner Facility:[facility] Start: 08-28-2023 End: 08-28-2023 ambulatory Frankie Cope Facility:[facility] Start: 08-08-2023 End: 08-08-2023 ambulatory Saqib Tanner Facility:[facility] Start: 01-20-2023 End: 01-20-2023 ambulatory [facility] Work Phone: Start: 01-20-2023 End: 01-20-2023 Patient encounter procedure [facility], Specimen Work Phone: Payers Date Payer Category Payer Self-pay [id number] 2023 Unknown [id number] 2014 Unknown KATHIA [id number] Unknown [id number] 2.16.8 [id number] Unknown [id number] 2.16.8 [id number] Unknown [id number] 2.16.8 [id number] Unknown [id number] 2.16.8 [id number] Unknown [id number] 2.16.8 [id number] Unknown [id number] 2.16.8 [id number] Unknown [id number] 2.16.8 [id number] Social History Date Type Detail Facility Start: [facility]-20-2020 [facility] Start: 01-20-2020 Cigarettes [facility] Start: 1970 Sex Assigned At Male [facility] Clinical Note 09-04-2023 Note Date & Type Note Facility 09-04-2023 Note [facility] Medical Records Department [address] [place] [address] History Physical Exam 09/04/23 1046 MR#: [id number] Acct: [id number] Name: KENNEDY KUNZ Rep #: [id number] : 1970 53 From: Saqib Tanner MD PCP: Dr. Frankie Cope MD Status:REG [facility] Location: AC20-1 History and Physical Date of Admission: 09/04/23 Intake Vital Signs 01/22/2009:53 08/07/2406:51 Height 5 ft 7 in 5 ft 7 in Weight: 158 lb 8 oz BMI 24.8 BP 117/81 H Blood Pressure Location Rt brachial Position Sitting Respiration 18 Pulse 80 Pulse Source Monitor Temp 97.6 F L Temp Source Temporal Pulse Oximetry (%) 98 Oxygen Delivery Method room air Intake Visit Reasons: INGUINAL HERNIA Chief Complaint: inguinal hernia Accompanied by: Is patient in pain?: No Allergies No Known Allergies Allergy (Verified 08/08/23 07:52) Medications ???Medication ???Instructions ???Recorded ???Confirmed ???Type lisinopril 5 mg tablet 5 mg PO QDAY 08/08/23 08/08/23 History metformin 500 mg tablet,extended 1,000 mg PO QDAY 08/08/23 08/08/23 History release 24 hr rosuvastatin 5 mg tablet 5 mg PO QDAY 08/08/23 08/08/23 History PFSH Medical History Stomach ulcer Liver disease Hypertension Social History (Updated 08/08/23 @ 07:51 by Fadumo Gustafson LPN) Smoking Status: Current every day smoker tobacco type: cigarettes Smoking packs per day: 1.5 Smoking cigarettes per day: 30.0 alcohol intake: never substance use type: does not use HPI HPI HPI: Patient is a 53-year-old male here for right groin bulging. Patient reports has been out for several months. He denies nausea or vomiting. He says it is painful especially with lifting. He denies pain on the opposite side. He denies fevers or chills. He says that he is easily pushed back in. ROS General General: No weight change, appetite, fatigue, colon cancer, breast cancer or weakness HEENT HEENT: No difficulty swallowing, eye injury, eye surgery, swollen glands or hoarseness Endo Endocrine: Yes diabetes mellitus; No thyroid disease, thyroid cancer, Hair loss, heat intolerance or cold intolerance Skin Skin: No rash or changing moles Musc Musculoskeletal: No back problems, arthritis, rheumatoid arthritis, gout or joint pain Cardio Cardiovascular: Yes high blood pressure; No murmur, pacemaker, heart disease, atrial fibrillation, heart attack, heart stent, palpitations, shortness of breat with exertion or chest pain Psych Psychiatric: No depression, anxiety or hearing voices Resp Respiratory: No shortness of breath, No sleep apnea, No cough, No COPD, No asthma, No emphysema and No wheezing Gastro Gastrointestinal: No abdominal pain, No nausea or vomiting, No diarrhea, No constipation, No blood in stool, No acid reflux, No hemorrhoids, No ulcers, No gallbladder problem and No black,tarry stools Jeff Hematologic: No blood thinners, No blood disorders, No bleeding, No anemia and No blood clots Neuro Neurologic: No numbness, No tingling and No weakness Exam Const General: cooperative Orientation: alert and oriented x3 HENMT Head: normal to inspection Neck Neck: normal visual inspection and full ROM Chest Chest palpation inspection: normal inspection of the chest Resp Effort Inspection: normal respiratory effort Auscultation: clear to auscultation bilaterally Cardio Rate: regular rate Rhythm: regular rhythm GI Inspection: non-distended Palpation: soft, hernia indirect inguinal on the right and nontender Skin General: no rashes or lesions noted Neuro General: patient alert and patient oriented x3 Extrem General: full ROM Psych Appearance: grossly normal Mental Status: mental status grossly normal Assessment and Plan Assessment and Plan (1) Right inguinal hernia: Status: Acute Plan: Patient has a right inguinal hernia which has been bothering him for few months. I discussed robotic assisted laparoscopic inguinal hernia repair with mesh. I discussed the risks including but not limited to bleeding, infection, injury to underlying organs such as the bowel, bladder, blood supply to the testicle. I discussed the possibility of chronic groin pain. Patient understands the risks and is willing to proceed. I discussed mesh placement in detail. Saqib Tanner MD Pager: [facility] [address] [place] [address], [address] [place] [address] Office: I have examined the patient and the H P has been reviewed. There are no clinical changes since date of exam. 09/04/23 1046 Cosigner Signature (if applicable): CC: Dr. Saqib Tanner MD; Dr. Frankie Cope MD Signed [facility] Evaluation note Note Date & Type Note Facility Evaluation note No assessment information availa mare [facility] Work Phone: Advance Directives No Advanced Directives Records Found Advance Directive Response Recorded Date/ Time Living Will No January 19 10:42am Power of Rn First Assist No January 20, 2020 10:42am Summary Purpose Family History No Family History Records Found Additional Source Comments Care Teams (unrecognized sec tion and content) Team Status: Active Member Role Status Dates Dr. Frankie Cope MD Family Provider Active Dr. Frankie Cope MD Primary Care Provider Active Team Status: Inactive Member Role Status Dates Dr. Frankie Cope MD Primary Care Provi philip, Attending Provider, Referring Provider Active Goals (unrecognized section and content) Goals may be documented in a n alternate section (unrecognized sect ion and content) No Status Records Found INFORMATION SOURCE (unrecogn ized section and content) DATE CREATED AUTHOR 04/21/2024 [facility] FOR RECORDS PERTAINING TO PATIENTS WHO ARE OR HAVE BEEN ENROLLED IN A CHEMICAL DEPENDENCY/SUBSTANCEABUSE PROGRAM, SOME INFORMATION MAY BE OMITTED. This clinical summary was aggregated from multiple sources. Caution should be exercised in using it in the provision of clinical care. This summary normalizes information from multiple sources, and as a consequence, information in this document may materially change the coding, format and clinical context of patient data. In addition, data may be omitted in some cases. CLINICAL DECISIONS SHOULD BE BASED ON THE PRIMARY CLINICAL RECORDS. [facility]. provides no warranty or guarantee of the accuracy or completeness of information in this document.
[2024-10-28 07:30] LABS: Cholesterol 130 mg/dL (<=200); Low Density Lipoprotein Calc. 62 mg/dL; Triglycerides 122 mg/dL; Very Low Density Lipoprotein 24 mg/dL (5-40); cholesterol:hdl ratio screen 2.95
[2024-10-28 08:44] LABS: Anion Gap 12 (5-15); BUN 17 mg/dL (4-19); BUN/Creat Ratio 16.7 RATIO (10-20); Calcium,Total 8.8 mg/dL (7.6-11.0); Carbon Dioxide 22.5 mmol/L (21.0-32.0); Chloride 106 mmol/L (98-108); Glucose 121 mg/dL (70-99); Potassium 4.1 mmol/L (3.3-5.1)
== END | disposition home or self-care (01) ==
LOC: LAB 06:38
PROVIDERS: PCP Family Medicine; Referring Provider Family Medicine; Visit Provider Family Medicine
DX: Z00.00 Encounter for general adult medical examination without abnormal findings (principal)
CPT/HCPCS: 36415; 80048; 80061